=== PATIENT | female | born 1990 | race Caucasian/White ===

== ENCOUNTER 2020-01-06 11:28 | Observation (INO) | payer OTHER, SELFPAY ==
[2020-01-06 12:15] VITALS: BP 98/61; PULSE 97
[2020-01-06 12:30] VITALS: BP 109/65; PULSE 95
--- NOTE | 2020-01-06 12:50 | OBADM ---
This patient, Laxmi Draper, admitted to the OB room OB Post 112 for observation. Patient/family oriented to hospital policies and general routines including ID bracelet, bed and alarms, visiting hours, pain management, procedures, bathroom and other care routines, personal items, smoking policy, room service/diet, and visiting hours. Patient/Family are encouraged to report perceived risks to care and to ask questions if they do not understand what they are told or what they should do.
--- NOTE | 2020-01-06 12:54 | PC.NURSE ---
1128 -- Pt. presents to OB via sheelchair from the ED. Pt. reports lower back pain starting just above the R. buttock and radiates down the R. buttock and the back of the R. leg. Pt. states she has been having this pain for 3-4 days, but has increased last night and today. Pt. reports that it is very intense whenever she uses her leg muscles to move. Pt. denies any trauma or surgical history. FHR 150's, abdomen soft and non-tender, pt. denies ctxns and vaginal bleeding.
--- NOTE | 2020-01-06 12:58 | PC.NURSE ---
1218--Report to Dr. Concepcion re: pt's c/o, v.s., fhr and no ctxns noted. Orders to send pt. to ED for further evaluation.
--- NOTE | 2020-01-06 13:00 | PC.NURSE ---
1145--FHR 150s, unable to obtain continuous tracing r/t gestational age of 21.5 weeks.
--- NOTE | 2020-01-06 13:02 | PC.NURSE ---
1244--Pt. to ED for further evaluation via wheelchair.
--- NOTE | 2020-01-14 07:57 | PM.OBTRLD ---
OB - Triage/Final Diagnosis Final Diagnosis (1) Sciatic pain: Code(s): M54.30 - Sciatica, unspecified side Status: Acute
== END 2020-01-06 11:44 | disposition other institution (70) ==
PROVIDERS: Admitting Provider Obstetrics & Gynecology; PCP Family Medicine; Visit Provider Obstetrics & Gynecology
DX: O99.89 Other specified diseases and conditions complicating pregnancy, childbirth and the puerperium (principal); M54.30 Sciatica, unspecified side; Z3A.00 Weeks of gestation of pregnancy not specified
CPT/HCPCS: G0378; G0379

== ENCOUNTER 2020-01-06 12:48 | Emergency (ER) | payer OTHER, SELFPAY ==
[2020-01-06 13:00] VITALS: BP 108/64; PULSE 90; RESP 15; TEMP 36.5; O2SAT 100
[2020-01-06] MEDS: ACETAMINOPHEN 500 MG TABLET 1000 MG PO (14:09)
[2020-01-06] MEDS: CYCLOBENZAPRINE HCL 10 MG TABLET PO (14:10)
--- NOTE | 2020-01-06 14:10 | ED.BACK ---
HPI - Back Pain/Injury General Chief Complaint: Back Pain/Injury <HERMINIO Merritt Last Filed: 01/06/20 14:15> Stated Complaint: hip pain <HERMINIO Merritt Last Filed: 01/06/20 14:15> Time Seen by Provider: 01/06/20 13:22 <HERMINIO Merritt Last Filed: 01/06/20 14:15> Source: patient <HERMINIO Merritt Last Filed: 01/06/20 14:15> Mode of arrival: ambulatory <HERMINIO Merritt Last Filed: 01/06/20 14:15> Limitations: no limitations <HERMINIO Merritt Last Filed: 01/06/20 14:15> History of Present Illness HPI Narrative: Patient is a 29-year-old female who presents to emergency department for evaluation of low back pain that is been present for several days noting pain to the right lower back at the SI region that radiates into the buttock patient denies injury or trauma is currently over 20 weeks followed by OB was initially sent to [facility] [place] had the evaluated and was sent back after being cleared patient on arrival to emergency department notes that the pain is worse with weightbearing and activity patient notes she has had issues with her back in the past patient is G1, P0. Patient denies abdominal pain pelvic pain cramping or bleeding or other complaints and is otherwise resting comfortably in the room upon arrival <HERMINIO Merritt Last Filed: 01/06/20 14:15> Related Data Home Medications: Home Medications Medication Instructions Recorded Confirmed bupropion HCl [Wellbutrin XL] 300 mg PO DAILY 05/10/19 05/10/19 PNV cmb#95-ferrous fumarate-FA 1 tablet PO DAILY 01/06/20 01/06/20 [] calcium carb,glucon-vitamin D2 01/06/20 ondansetron HCl [Zofran] 4 mg PO Q6H PRN 01/06/20 01/06/20 <HERMINIO Merritt Last Filed: 01/06/20 14:15> Allergies/Adverse Reactions: Allergies Allergy/AdvReac Type Severity Reaction Status Date / Time venlafaxine [From Effexor] Allergy Rash Verified 01/06/20 13:08 medical tape AdvReac Unknown Unknown Uncoded 01/06/20 13:08 <Jose Franks PA-C - Last Filed: 01/06/20 14:15> Review of Systems Review of Systems: All systems reviewed & are unremarkable except as noted in HPI and below <Jose Franks PA-C - Last Filed: 01/06/20 14:15> PMFSH Family History Family History: Family History (Updated 03/03/14 @ 07:13 by DOCTOR UNKNOWN) Father Family history of cardiac disorder Grandparent Family history of lung cancer Sibling Family history of type 2 diabetes mellitus <Jose Franks PA-C - Last Filed: 01/06/20 14:15> Social History Social History: Social History Smoking status: Heavy tobacco smoker Second hand tobacco smoke exposure: No Alcohol intake: current Gender identity (if verbalized by the patient): Female <Jose Franks PA-C - Last Filed: 01/06/20 14:15> Exam Narrative: Exam Narrative: GENERAL: Well-appearing, well-nourished, and in no acute distress. HEAD: Normocephalic, atraumatic. EYES: PERRLA and EOMI. ENT: Nares clear, no rhinorrhea or epistaxis. Mucous membranes moist. CHEST: Clear to auscultation. No respiratory distress. No wheezes rales or rhonchi HEART: Regular rate and rhythm. No murmur heard. EXTREMITIES: Normal range of motion. No edema. Tenderness over the right SI joint. No midline tenderness SKIN: Warm, dry, no rash. NEURO: No focal deficits. Alert and oriented x3. Cranial nerves II through XII grossly intact. Motor and speech symmetrical in extremities PSYCH: Normal mood and affect. 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 <Jose Michelle
== END 2020-01-06 14:38 | disposition home or self-care (01) ==
PROVIDERS: Emergency Provider General Practice; PCP Family Medicine
DX: M54.16 Radiculopathy, lumbar region (principal); F17.210 Nicotine dependence, cigarettes, uncomplicated
CPT/HCPCS: 99283; A9270

== ENCOUNTER 2020-01-06 20:05 | Observation (INO) | payer OTHER, SELFPAY ==
[2020-01-06 20:22] VITALS: BP 117/65; PULSE 89
[2020-01-06 20:30] VITALS: BP 117/69; PULSE 90
[2020-01-06 20:43] LABS: Add Urine Microscopic? YES; Appearance Urine Cloudy (Clear); Bacteria Urine Trace /hpf; Bilirubin Urine Negative (Negative); Blood Urine Negative (Negative); Color Urine Straw (Yellow); Glucose Urine UA Negative (Negative); Ketones Urine Negative (Negative); Leukocyte Esterase Ur Trace LEU/UL (Negative); Nitrate Urine Negative (Negative); Protein Urine Negative (Negative); RBC Urine 0-2 /hpf (0-2); Squamous Epithelial Cell Urine Many /hpf (Few); Urobilinogen Urine Negative mg/dL (<2.0)
[2020-01-06 20:45] VITALS: BP 111/66; PULSE 89
[2020-01-06 20:47] LABS: Specific Grav Ur 1.003 (1.001-1.035)
[2020-01-06 21:00] VITALS: BP 107/61; PULSE 89
[2020-01-06 21:15] VITALS: BP 109/67; PULSE 91
[2020-01-06 21:28] VITALS: BMI 27.2
--- NOTE | 2020-01-06 21:29 | LDADM ---
This patient, Laxmi Draper, was admitted to OB Post 116 on 01/06/20 at 20:05. Plans for labor, pain management and were discussed with patient. Patient/family oriented to hospital policies and general routines including ID bracelet, bed and alarms, visiting hours, pain management, procedures, bathroom and other care routines, personal items, smoking policy, room service/diet and guest tray routines, security routines, and visiting hours. Patient/Family are encouraged to report perceived risks to care and to ask questions if they do not understand what they are told or what they should do. See OBIX for further documentation.
--- NOTE | 2020-01-06 21:59 | PC.NURSE ---
2004- pt came in c/o lower abd pain and lower back pain. stated that she just finished macrobid on Friday for a UTI. 2111- called Dr. Concepcion. informed of pt admission. UA results reviewed. sxs reviewed. order for Keflex 500mg QID x7 days received. pelvic rest ordered. pt has appt 01-11-2020 with Laurie NOVAK. keep appt. pt to f/u in office or return to L&D if further concerns.
--- NOTE | 2020-01-14 07:55 | PM.OBTRLD ---
OB - Triage/Final Diagnosis Evaluation Laboratory results: Laboratory Tests 01/06/20 20:30 Urine Color Straw Urine Appearance Cloudy H Urine pH 7.0 Ur Specific [place] 1.003 Urine Protein Negative Urine Glucose (UA) Negative Urine Ketones Negative Ur Blood (Man) Negative Urine Nitrate Negative Urine Bilirubin Negative Urine Urobilinogen Negative Leukocyte Esterase Rfl Trace H Urine RBC 0-2 Urine WBC 4-6 H Ur Squamous Epith Cells Many H Urine Bacteria Trace Hyaline Casts 1-2 Final Diagnosis (1) Spotting affecting in second trimester: Code(s): O26.852 - Spotting complicating , second trimester Status: Acute
== END 2020-01-06 21:55 | disposition home or self-care (01) ==
PROVIDERS: Admitting Provider Obstetrics & Gynecology; PCP Family Medicine; Visit Provider Obstetrics & Gynecology
DX: O26.852 Spotting complicating pregnancy, second trimester (principal); Z3A.00 Weeks of gestation of pregnancy not specified
CPT/HCPCS: 81001; 99283; A9270; G0378; G0379

== ENCOUNTER 2020-05-04 16:49 | Observation (INO) | payer OTHER, SELFPAY ==
[2020-05-04 17:00] VITALS: TEMP 36.6; BMI 32.0
[2020-05-04 17:02] VITALS: BP 130/80; PULSE 104
[2020-05-04 17:31] VITALS: BP 113/82; PULSE 95
--- NOTE | 2020-05-04 17:31 | OBADM ---
This patient, Laxmi Draper, admitted to the OB room 103 for observation for rectal pressure. Patient/family oriented to hospital policies and general routines including ID bracelet, bed and alarms, visiting hours, pain management, procedures, bathroom and other care routines, personal items, smoking policy, room service/diet, and visiting hours. Patient/Family are encouraged to report perceived risks to care and to ask questions if they do not understand what they are told or what they should do.
--- NOTE | 2020-05-15 20:55 | PM.OBTRLD ---
OB - Triage/Final Diagnosis Final Diagnosis (1) Constipation: Code(s): K59.00 - Constipation, unspecified Status: Acute
== END 2020-05-04 18:30 | disposition home or self-care (01) ==
PROVIDERS: Admitting Provider Obstetrics & Gynecology; PCP Family Medicine; Visit Provider Obstetrics & Gynecology
DX: O26.899 Other specified pregnancy related conditions, unspecified trimester (principal); K59.00 Constipation, unspecified; Z3A.00 Weeks of gestation of pregnancy not specified
CPT/HCPCS: G0378; G0379

== ENCOUNTER 2020-05-09 12:59 | Outpatient (CLI) | payer OTHER, SELFPAY ==
[2020-05-09] VITALS (9 sets, daily range): BP systolic 119–126; BP diastolic 79–89; PULSE 93–107; RESP 18; TEMP 36.6
[2020-05-09 13:50] LABS: Basophils Percent Auto 0.2 % (0.2-1.2); Eosinophils Absolute Auto 0.1 K/mm3 (0-0.3); Eosinophils Percent Auto 0.9 % (0-4.4); Hematocrit 33.5 % (37.0-47.0); Hemoglobin 11.5 g/dL (12.0-15.0); Immature Granulocyte Absolute 0.07 K/mm3 (0.00-0.031); Immature Granulocyte Percent A 0.5 % (0-0.5); Lymphocytes Absolute Auto 2.21 K/mm3 (0.9-3.2); Mean Corpuscular HGB Conc 34.3 g/dl (32-36); Mean Corpuscular Hemoglobin 29.3 pg (26-34); Mean Corpuscular Volume 85.5 fl (80-100); Mean Platelet Volume 10.7 fl (7.4-10.4); Monocytes Absolute Auto 0.5 K/mm3 (0.1-0.6); Monocytes Percent Auto 3.7 % (2.6-8.5); Neutrophils Absolute Auto 10.1 K/mm3 (1.3-6.7); Neutrophils Percent Auto 77.7 % (45.5-73.1); Platelet Count Result 290 k/mm3 (150-375); Red Blood Count 3.92 M/mm3 (4.2-5.4); Red Cell Distribution Width 14.4 % (11.5-14.5)
[2020-05-09 14:00] LABS: Alanine Aminotransferase 14 U/L (4-35); Albumin Level 3.3 g/dL (3.5-5.1); Alkaline Phosphatase 200 U/L (38-126); Anion Gap 6 mmol/L (8-16); Aspartate Amino Transferase 20 U/L (14-36); Bilirubin,Total 0.3 mg/dL (0.2-1.3); Blood Urea Nitrogen 7 mg/dL (7-17); Calcium 8.9 mg/dL (8.4-10.2); Carbon Dioxide 24 mmol/L (22-30); Chloride 106 mmol/L (98-107); Estimated Glomerular Filt Rate > 60; Glucose 146 mg/dL (65-105); Potassium 3.9 mmol/L (3.4-5.0); Sodium 136 mmol/L (137-145); Uric Acid 5.3 mg/dL (2.5-7.5)
[2020-05-09 14:16] LABS: Add Urine Microscopic? YES; Amorphous Sediment Urine Few; Appearance Urine Cloudy (Clear); Bacteria Urine 2+ /hpf; Bilirubin Urine Negative (Negative); Blood Urine Negative (Negative); Color Urine Yellow (Yellow); Glucose Urine UA Negative (Negative); Ketones Urine Negative (Negative); Leukocyte Esterase Ur 3+ LEU/UL (NEGATIVE); Mucus Urine Rare /lpf; Nitrate Urine Negative (Negative); Protein Urine Negative (Negative); Specific Grav Ur 1.011 (1.001-1.035); Squamous Epithelial Cell Urine Many /hpf (Few); Urobilinogen Urine Negative mg/dL (<2.0)
[2020-05-09 15:08] LABS: Creatinine Urine 63.2 mg/dL; Total Protein Urine Random 10 mg/dL
--- NOTE | 2020-05-09 15:12 | PC.NURSE ---
Laurie Gonzalez CNM updated regarding serial blood pressures, reactive NST, and lab results. Received orders to discharge patient to home and to have patient keep her induction of labor appointment for .
== END 2020-05-09 15:17 | disposition home or self-care (01) ==
LOC: ANHOBOP 13:22 → ANHOBPP 13:23
PROVIDERS: Advanced Practice Midwife; PCP Family Medicine; Visit Provider Obstetrics & Gynecology
DX: O13.3 Gestational [pregnancy-induced] hypertension without significant proteinuria, third trimester (principal); Z3A.39 39 weeks gestation of pregnancy
CPT/HCPCS: 36415; 59025; 80053; 81001; 82570; 84156; 84550; 85025; 87086; 87088; 99199

== ENCOUNTER 2020-05-11 16:48 | Inpatient (IN) | payer OTHER, SELFPAY ==
[2020-05-11] VITALS (11 sets, daily range): BP systolic 113–134; BP diastolic 73–96; PULSE 84–108; TEMP 36.4–36.7; BMI 31.7
[2020-05-11] MEDS: DINOPROSTONE 10 MG VAG INSERT VAGINAL (17:21)
[2020-05-11 17:26] LABS: Basophils Percent Auto 0.3 % (0.2-1.2); Eosinophils Absolute Auto 0.1 K/mm3 (0-0.3); Eosinophils Percent Auto 0.6 % (0-4.4); Hematocrit 38.8 % (37.0-47.0); Hemoglobin 13.3 g/dL (12.0-15.0); Immature Granulocyte Absolute 0.07 K/mm3 (0.00-0.031); Immature Granulocyte Percent A 0.6 % (0-0.5); Lymphocytes Absolute Auto 2.35 K/mm3 (0.9-3.2); Lymphocytes Percent Auto 20.1 % (18.3-44.2); Mean Corpuscular HGB Conc 34.3 g/dl (32-36); Mean Corpuscular Hemoglobin 28.9 pg (26-34); Mean Corpuscular Volume 84.3 fl (80-100); Mean Platelet Volume 10.4 fl (7.4-10.4); Monocytes Absolute Auto 0.5 K/mm3 (0.1-0.6); Neutrophils Absolute Auto 8.7 K/mm3 (1.3-6.7); Neutrophils Percent Auto 74.4 % (45.5-73.1); Platelet Count Result 305 k/mm3 (150-375); Red Cell Distribution Width 14.2 % (11.5-14.5); White Blood Count 11.7 K/mm3 (4.5-10.0)
--- NOTE | 2020-05-11 17:54 | LDADM ---
This patient, Laxmi Draper, was admitted to Labor/Delivery/Recovery 102 on 05/11/20 at 16:48. Plans for labor, pain management and were discussed with patient. Patient/family oriented to hospital policies and general routines including ID bracelet, bed and alarms, visiting hours, pain management, procedures, bathroom and other care routines, personal items, smoking policy, room service/diet and guest tray routines, infant security routines, and visiting hours. Patient/Family are encouraged to report perceived risks to care and to ask questions if they do not understand what they are told or what they should do. See OBIX for further documentation.
[2020-05-12] VITALS (220 sets, daily range): BP systolic 93–134; BP diastolic 52–93; PULSE 67–114; RESP 15–16; TEMP 36.1–37.4; O2SAT 93–100
[2020-05-12] MEDS: LACTATED RINGERS 1,000 ML 125 ML IV CONT ×4 (05:52→19:16)
[2020-05-12] MEDS: OXYTOCIN 30 UNITS/NS 500 ML 30 UNITS/500 ML BAG IV CONT (05:53)
--- NOTE | 2020-05-12 07:35 | WPDOBADMIT ---
Obstetrics - Admit Note Admission Note: record reviewed. No pertinent additions to the history and/or any subsequent changes in the physical findings that are not consistent with the expected course of the were found. EIL at term, SVE /-2 AROM large amount of clear odorless fluid Additions to the history and/or subsequent changes in the physical findings follow. None.
[2020-05-12 11:09] LABS: Rapid Plasma Reagin Non-Reactive (NonReactive)
[2020-05-12] MEDS: ONDANSETRON INJ 4 MG/2 ML VIAL IV PUSH (17:09)
[2020-05-12] MEDS: FAMOTIDINE 20 MG/2 ML VIAL IV PUSH (17:09)
[2020-05-13] VITALS (122 sets, daily range): BP systolic 98–139; BP diastolic 42–98; PULSE 52–143; RESP 16–20; TEMP 36.6–37.4; O2SAT 75–100
[2020-05-13] MEDS: AMPICILLIN 2 GM/NS 100 ML 2 GM/100 ML BAG IVPB (01:29)
[2020-05-13] MEDS: AMPICILLIN 1 GM/NS 50 ML 1 GM/50 ML BAG IVPB (05:08)
[2020-05-13] MEDS: ONDANSETRON INJ 4 MG/2 ML VIAL IV PUSH (05:08)
[2020-05-13] MEDS: LACTATED RINGERS 1,000 ML 125 ML IV CONT (05:26)
--- NOTE | 2020-05-13 08:39 | PM.OBPRVD ---
OB - Delivery Note Procedure Delivery date: 05/13/20 Intrapartal events: None Induction method: per pitocin protocol Delivery monitor: external FHT, external uterine and internal uterine Route of delivery: Episiotomy description: None Laceration Description: Vaginal - 1st Degree Delivery repair: vicryl Estimated blood loss (mL): 200 Narrative: Delivery per Monica OCONNOR. Cord gasses collected and handed off to staff. [place] Baby Date of : 05/13/20 Time of : 08:18 Weeks of gestation at delivery: 40 gender: Male Weight (pounds): 7 Weight (ounces): 10 presentation: vertex position: Left Occiput Anterior Placenta delivery description: Spontaneous cord vessel description: 3 Vessels
[2020-05-13] MEDS: OXYTOCIN 30 UNITS/NS 500 ML 30 UNITS/500 ML BAG 125 UNITS IV CONT (08:43)
[2020-05-13] MEDS: WITCH HAZEL 40 PADS 1 PAD TOPICAL (10:29)
[2020-05-13] MEDS: BENZOCAINE 20% AER SPR (*SP) 56 GM CAN 1 SPRAY TOPICAL (10:29)
--- NOTE | 2020-05-13 11:28 | OBPPTRN ---
Patient transferred to post room # 292 via wheelchair. Support person present. Oriented to unit, room, information board, rooming in, admission packet and security measures. Patient verbalizes understanding.
[2020-05-13] MEDS: DIBUCAINE 1% OINTMENT 30 GM TUBE 1 APPLIC TOPICAL (13:40)
[2020-05-13] MEDS: buPROPion HCL XL (24 HR) 150 MG TABCR 300 MG PO (14:52)
[2020-05-13] MEDS: IBUPROFEN 600 MG TABLET PO ×2 (14:53→19:50)
[2020-05-14] MEDS: IBUPROFEN 600 MG TABLET PO ×2 (02:36→09:12)
[2020-05-14 04:18] LABS: Hematocrit 30.6 % (37.0-47.0); Hemoglobin 10.5 g/dL (12.0-15.0)
[2020-05-14 06:45] VITALS: BP 110/69; PULSE 91; RESP 20; TEMP 36.5
[2020-05-14] MEDS: MULTIVIT/MIN/PREN/FOL AC/IRON TABLET 1 TAB PO (09:12)
[2020-05-14] MEDS: DOCUSATE SODIUM 100 MG CAPSULE PO (09:12)
--- NOTE | 2020-05-14 09:52 | WPDANLDPN2 ---
Anes-Prog Note L&D Date/Time: 05/14/20 09:52 Comfortable throughout: labor and delivery Neuraxial method: epidural Neuro status: Neuro function grossly intact. Cardiovascular status: normal Respiratory status: normal Airway patency: baseline Mental status: baseline Post-Op hydration status: normal Vital Signs: Last Vital Signs Temp 36.5 C 05/14/20 06:45 Pulse 91 05/14/20 06:45 Resp 20 05/14/20 06:45 BP 110/69 05/14/20 06:45 Pulse Ox 99 05/13/20 19:20 Pain score (VAS): 07/16 Post-procedural complaints: none Patient feedback: Patient satisfied with anesthetic care.
--- NOTE | 2020-05-14 10:32 | P.DS_ITS ---
DS: Admitting Diagnosis Admitting Diagnosis Admitting Diagnosis: induction of labor DS: Discharge Diagnosis Discharge Diagnosis (1) Vaginal delivery: Code(s): O80 - Encounter for full-term uncomplicated delivery Status: Acute OB - DS: Summary OB Procedures : None OB Procedures Intrapartum: Spontaneous Vag Delivery OB Procedures: : None Time Spent with Patient Time attestation: Total time spent providing and/or coordinating discharge services: DS: Data Data Completed and Pending Pending studies at discharge: Pending at discharge 05/13/20 09:34 Surgical [PTH] Routine Labs on day of discharge: Labs from last 24 hours 05/14/20 03:35 Hgb 10.5 L Hct 30.6 L Discharge Plan Discharge Attending physician on discharge: Rosa Dee Discharging Clinician: Rosa Dee Patient Disposition: Home, Self-Care Activity: pelvic rest Diet: as tolerated Patient Instructions: Antibiotic Form Stand Alone Forms: General Discharge Information Follow-up/Referrals: Rosa Dee, CNM [Certified Nurse Instructor Physical Education] - Discharge Medications: Continued bupropion HCl [Wellbutrin XL] 150 mg Tablet Extended Release 24 Hr 300 mg PO DAILY RF: 0 PNV cmb#95-ferrous fumarate-FA [] 28 mg iron- 800 mcg Tablet 1 tablet PO DAILY RF: 0 cholecalciferol (vitamin D3) [Vitamin D3] 50 mcg (2,000 unit) Tablet 75 mcg PO DAILY RF: 0 Discontinued ondansetron HCl [Zofran] 4 mg Tablet 8 mg PO DAILY PRN (Reason: Nausea) RF: 0 Date of admission: 05/11/20 16:48 Primary Care Provider: Kristen,Ksenia Nayak Admitting Provider: David Guevara Attending physician on admission: David Guevara Condition: Stable
--- NOTE | 2020-05-14 10:32 | PM.OBPNVD ---
OB - PN: Subj Subjective Date/time seen: 05/14/20 10:32 Patient comments: no complaints baby status: doing well OB - PN: Obj Data Labs CBC & Chem 7: 05/14/20 03:35 Labs: Laboratory Results - last 24 hr 05/14/20 03:35 Hgb 10.5 L Hct 30.6 L OB - PN A/P Plan day: 1 Plan: routine care and discharge home (F/U in 4 weeks) Time Spent With Patient Time: Total time spent is greater than 50% in coordination of care (as documented) at patient's floor/unit and/or counseling patient: Time with patient: less than 15 minutes Review of Systems Review of Systems: All systems reviewed & are unremarkable except as noted in HPI and below Exam Narrative: Exam Narrative: Fundus firm and vaginal flow controlled. No lower ext redness, warmth, or edema. Negative homans. Const: General: comfortable Chest: Breast/axilla inspection: normal inspection of the breasts Resp: Effort & Inspection: normal respiratory effort Cardio: Rate: regular rate GI: GI Palp: Yes Soft to palpation Psych: Appearance: grossly normal Affect: normal affect Attitude: cooperative Thought content: Yes Normal thought content present Judgement: Good judgement present (Psych)
[2020-05-15 08:45] VITALS: BP 127/83; PULSE 98; RESP 20; TEMP 36.7; O2SAT 99
== END 2020-05-14 13:02 | disposition home or self-care (01) | DRG 560 ==
LOC: ANHLDR 16:53 → ANHOB2 05-13 11:34
PROVIDERS: Advanced Practice Midwife; Admitting Provider Obstetrics & Gynecology; PCP Family Medicine; Visit Provider Obstetrics & Gynecology
DX: O70.0 First degree perineal laceration during delivery (principal); Z37.0 Single live birth; Z3A.40 40 weeks gestation of pregnancy; O36.8330 Maternal care for abnormalities of the fetal heart rate or rhythm, third trimester, not applicable or unspecified
CPT/HCPCS: 36415; 85014; 85018; 85025; 86592; 86850; 86900; 86901; 88307; A9270; J0290; J2405; J2590; J2795; J7120

== ENCOUNTER 2020-05-15 03:46 | Outpatient (CLI) | payer OTHER, SELFPAY ==
[2020-05-15 05:00] LABS: Basophils Absolute Auto 0.1 K/mm3 (0.0-0.1); Basophils Percent Auto 0.4 % (0.2-1.2); Eosinophils Absolute Auto 0.2 K/mm3 (0-0.3); Eosinophils Percent Auto 1.9 % (0-4.4); Hematocrit 30.4 % (37.0-47.0); Hemoglobin 10.3 g/dL (12.0-15.0); Immature Granulocyte Percent A 0.9 % (0-0.5); Lymphocytes Absolute Auto 2.43 K/mm3 (0.9-3.2); Lymphocytes Percent Auto 21.8 % (18.3-44.2); Mean Corpuscular HGB Conc 33.9 g/dl (32-36); Mean Corpuscular Hemoglobin 29.1 pg (26-34); Mean Corpuscular Volume 85.9 fl (80-100); Mean Platelet Volume 9.8 fl (7.4-10.4); Monocytes Absolute Auto 0.6 K/mm3 (0.1-0.6); Monocytes Percent Auto 5.5 % (2.6-8.5); Neutrophils Absolute Auto 7.8 K/mm3 (1.3-6.7); Neutrophils Percent Auto 69.5 % (45.5-73.1); Platelet Count Result 297 k/mm3 (150-375); Red Blood Count 3.54 M/mm3 (4.2-5.4); Red Cell Distribution Width 14.2 % (11.5-14.5); White Blood Count 11.2 K/mm3 (4.5-10.0)
[2020-05-15 05:10] LABS: Alanine Aminotransferase 17 U/L (4-35); Alkaline Phosphatase 148 U/L (38-126); Anion Gap 6 mmol/L (8-16); Aspartate Amino Transferase 28 U/L (14-36); Bilirubin,Total 0.2 mg/dL (0.2-1.3); Blood Urea Nitrogen 7 mg/dL (7-17); Calcium 8.6 mg/dL (8.4-10.2); Carbon Dioxide 25 mmol/L (22-30); Chloride 107 mmol/L (98-107); Estimated Glomerular Filt Rate > 60; Glucose 89 mg/dL (65-105); Potassium 3.5 mmol/L (3.4-5.0); Sodium 138 mmol/L (137-145)
--- NOTE | 2020-05-15 05:32 | PC.NURSE ---
see OBIX notes
== END 2020-05-15 05:44 | disposition home or self-care (01) ==
LOC: ANHOBOP 03:56
PROVIDERS: Advanced Practice Midwife; PCP Obstetrics & Gynecology; Visit Provider Obstetrics & Gynecology
DX: O13.9 Gestational [pregnancy-induced] hypertension without significant proteinuria, unspecified trimester (principal); Z3A.00 Weeks of gestation of pregnancy not specified
CPT/HCPCS: 36415; 80053; 84550; 85025

== ENCOUNTER 2020-12-26 12:37 | Emergency (ER) | payer OTHER, SELFPAY ==
[2020-12-26 12:45] VITALS: BP 122/80; PULSE 89; RESP 16; TEMP 36.3; O2SAT 100
--- NOTE | 2020-12-26 13:16 | ED.URI ---
HPI - URI/Sore Throat General Chief Complaint: Upper Respiratory Infection Stated Complaint: Congestion,Ear Pain Source: patient and RN notes reviewed Limitations: no limitations History of Present Illness HPI Narrative: The patient-who is a nondrinker/ smoker inc marijuana- presents with sinus discomfort. Patient states she is currently breast-feeding and has a 10-day history of nasal congestion, right ear fullness/bubbling, lightheadedness, right-sided tinnitus yesterday. No fever measured, sore throat, cough, tinnitus now. She has been Covid vaccinated [x2] : No loss of taste/smell, CP, vomiting/diarrhea, S OB. Symptoms are mild, unrelieved with antihistamines Related Data Home Medications Medication Instructions Recorded Confirmed bupropion HCl 300 mg PO DAILY 12/26/20 12/26/20 buspirone 10 mg PO BID 12/26/20 12/26/20 Allergies Allergy/AdvReac Type Severity Reaction Status Date / Time venlafaxine [From Effexor] Allergy Rash Verified 12/26/20 13:08 medical tape AdvReac Unknown Unknown Uncoded 12/26/20 13:08 Review of Systems Review of Systems: Narrative: General/Constitutional: No weight loss,fever Eyes: N0: Redness,discharge Ears/Nose/Throat: No: Epistaxis,ear discharge Respiratory: Denies: Hemoptysis Gastrointestinal: No Vomiting, Bleeding-rectal Skin: No Lumps, eruption Neurologic: No Focal Weakness,Sz Hematologic: Denies: Petechiae/Purpura Psychiatric: No: Suicida ideationl All Other Systems: Reviewed and Negative PMFSH Family History Family History (Updated 04/12/20 @ 14:33 by Samantha Kelsey RN) Father Family history of cardiac disorder SVT (supraventricular tachycardia) Grandparent Family history of lung cancer Sibling Family history of type 2 diabetes mellitus Mother Endometrial cancer Social History Social History Smoking status: Former smoker Second hand tobacco smoke exposure: No Alcohol intake: current Substance use: former Gender identity (if verbalized by the patient): Female Spiritual care concerns: No Comments At time of signature, agree with nursing past medical, surgical, social and family history. There is no relevant family history pertinent to the presenting complaint Exam Narrative: Exam Narrative: General Appearance: Well appearing, Well nourished EYE: PERRLA, Conjunctiva clear Ears: Auditory canal normal, TM normal Nose: Rhinorrhea, Mucousal erythema Mouth/Throat: MM moist, Uvula midline, Pharyngeal erythema Neck: Supple, No adenopathy Respiratory: No respiratory distress, Breath sounds equal, Clear to auscultation Cardiovascular: RRR, No JVD Musculoskeletal: Non tender, Normal strength Skin: Warm, Dry, multiple tattoos Neurological: A&O x3, CN II-XII intact Psychiatric: Normal mood, Normal affect Course Vital Signs Vital signs: Vital Signs Temperature 97.3 F L 12/26/20 12:45 Pulse Rate 89 12/26/20 12:45 Respiratory Rate 16 12/26/20 12:45 Blood Pressure 122/80 12/26/20 12:45 Pulse Oximetry 100 12/26/20 12:45 Temperature 97.3 F L 12/26/20 12:45 Pulse Rate 89 12/26/20 12:45 Respiratory Rate 16 12/26/20 12:45 Blood Pressure 122/80 12/26/20 12:45 Pulse Oximetry 100 12/26/20 12:45 Discharge Plan Discharge Clinical Impression: Sinusitis Patient Disposition: Home, Self-Care Condition: Stable Instructions: Sinusitis (ED) Additional Instructions: You may try OTC preparations like Mucinex, Flonase, Claritin or Codie, etc. Prescriptions: New azelastine 137 mcg (0.1 %) aerosol,spray 137 mcg NASAL Q12H Qty: 30 RF: 0 amoxicillin 875 mg tablet 875 mg PO Q12H Qty: 20 RF: 0 No Action buspirone 10 mg tablet 10 mg PO BID RF: 0 bupropion HCl 300 mg tablet extended release 24 hr 300 mg PO DAILY RF: 0 Follow-up/Referrals: Jovan,Ksenia Nayak MD [Primary Care Provider] -
== END 2020-12-26 13:35 | disposition home or self-care (01) ==
PROVIDERS: Emergency Provider Emergency Medicine; PCP Family Medicine
DX: J32.9 Chronic sinusitis, unspecified (principal); Z87.891 Personal history of nicotine dependence
CPT/HCPCS: 99213; G0463

== ENCOUNTER 2021-08-26 11:24 | Emergency (ER) | payer OTHER, SELFPAY ==
--- NOTE | 2021-08-26 11:28 | ED.URI ---
HPI - URI/Sore Throat General Chief Complaint: Upper Respiratory Infection Stated Complaint: Sinus Infection Time Seen by Provider: 08/26/21 11:40 Source: patient and RN notes reviewed History of Present Illness HPI Narrative: Patient is a 30-year-old female who presents the urgent care with complaints of sinus pressure, postnasal drainage and a left nasal sore. Patient states that it has been there for approximately 1-1/2 weeks. States that she is currently breast-feeding has not taken anything [id number] for her symptoms. Patient denies of any fevers, chills, nausea or vomiting. No other acute complaints. No acute distress noted. Patient read the plan of care. Some parts of this dictation were generated by voice recognition software and may contain typographical and/or grammatical inaccuracies. Related Data Home Medications Medication Instructions Recorded Confirmed bupropion HCl 300 mg PO DAILY 08/26/21 08/26/21 clindamycin phosphate 1 applic TOPICAL DAILY 08/26/21 08/26/21 norethindrone (contraceptive) 0.35 mg PO DAILY 08/26/21 08/26/21 [Incassia] Allergies Allergy/AdvReac Type Severity Reaction Status Date / Time venlafaxine [From Effexor] Allergy Rash Verified 08/26/21 11:34 medical tape AdvReac Unknown Unknown Uncoded 08/26/21 11:34 Review of Systems Review of Systems: CONSTITUTIONAL: Denies fever, chills, or sweats. EYES: Denies visual changes, redness, or discharge. ENT: Reports of a nasal sore, congestion, postnasal drainage and sinus pressure CARDIOVASCULAR: Denies chest pain, palpitations, or edema. RESPIRATORY: Denies cough or dyspnea. GASTROINTESTINAL: Denies abdominal pain, nausea, vomiting, or diarrhea. GENITOURINARY: Denies dysuria or hematuria. SKIN: Denies rash or itching. MUSCULOSKELETAL: Denies back pain, joint pain, or myalgia. NEUROLOGIC: Denies headache, numbness, or weakness. All other systems reviewed are negative, except as documented in HPI. [facility] Family History Family History (Updated 04/12/20 @ 14:33 by Samantha Kelsey RN) Father Family history of cardiac disorder SVT (supraventricular tachycardia) Grandparent Family history of lung cancer Sibling Family history of type 2 diabetes mellitus Mother Endometrial cancer Social History Social History Smoking status: Former smoker Second hand tobacco smoke exposure: No Alcohol intake: current Substance use: former Gender identity (if verbalized by the patient): Female Spiritual care concerns: No Comments At the time of my signature, I reviewed and agree with the nursing past medical, surgical, social, and family history. There is no relevant family history pertinent to the patient complaint. Exam Narrative: GENERAL: This is a well-nourished, well-developed patient, in no apparent distress. HEAD: normocephalic, atraumatic. Moderate frontal sinus pressure/tenderness EYES: PERRL. Sclera clear/white. Vision is grossly intact. EARS: External ears normal, auditory canals clear and without drainage, TMs normal without perforation. Hearing grossly intact. NOSE: External nose normal with no obvious nasal discharge. Bilateral erythemic nares with impetigo-like lesion to the left nare with clear to yellow rhinorrhea THROAT: Mucous membranes moist, posterior pharynx clear. Mild postnasal drainage NECK: Neck supple CARDIOVASCULAR: Regular rate and rhythm without murmurs, gallops, or rubs. RESPIRATORY: Clear to auscultation. Breath sounds equal bilaterally. No wheezes, rales, or rhonchi. SKIN: warm, intact with no suspicious lesions or rash, good texture and turgor. NEURO: awake, alert, and oriented to person, place and time. There were no obvious focal neurologic abnormalities. EXTREMITIES: No clubbing, cyanosis, or edema. Course Course Level of Care: Express Care Visit Vital Signs Vital signs: Vital Signs Temperature 97.8 F 08/26/21 11:32 P
[2021-08-26 11:32] VITALS: BP 123/74; PULSE 83; RESP 16; TEMP 36.6; O2SAT 100
== END 2021-08-26 11:53 | disposition home or self-care (01) ==
PROVIDERS: Emergency Provider Nurse Practitioner Family
DX: J32.9 Chronic sinusitis, unspecified (principal); Z87.891 Personal history of nicotine dependence; F32.A Depression, unspecified
CPT/HCPCS: 99213; G0463

== ENCOUNTER 2022-01-29 11:55 | Emergency (ER) | payer OTHER, SELFPAY ==
[2022-01-29 12:04] VITALS: BP 156/92; PULSE 98; RESP 16; TEMP 37.1; O2SAT 100
--- NOTE | 2022-01-29 12:18 | ED.URI ---
HPI - URI/Sore Throat General Chief Complaint: Upper Respiratory Infection Stated Complaint: uri Time Seen by Provider: 01/29/22 12:18 Source: patient and RN notes reviewed Mode of arrival: ambulatory Limitations: no limitations History of Present Illness HPI Narrative: 31 y/o female presented for c/o cough, sinus pressure and congestion for 2 weeks. She is currently and has avoided antihistamines. Denies sob, wheezing, n/v/d/f/c. MD elicited complaint: cough Related Data Home Medications Medication Instructions Recorded Confirmed bupropion HCl 300 mg 24 hr tablet, 300 mg PO DAILY 08/26/21 01/29/22 extended release norethindrone (contraceptive) 0.35 0.35 mg PO DAILY 08/26/21 01/29/22 mg tablet (Incassia) omeprazole 20 mg capsule,delayed 20 mg PO DAILY 01/29/22 01/29/22 release Allergies Allergy/AdvReac Type Severity Reaction Status Date / Time venlafaxine [From Effexor] Allergy Rash Verified 01/29/22 12:08 medical tape AdvReac Unknown Unknown Uncoded 01/29/22 12:08 Review of Systems Review of Systems: CONSTITUTIONAL: Denies malaise, chills, sweats, fever EYES: Denies visual changes, redness, or discharge ENT: Reports rhinorrhea, congestion, sinus pain denies otalgia, sore throat CARDIOVASCULAR: Denies chest pain, palpitations, edema RESPIRATORY: Reports cough, post nasal drainage. Denies dyspnea GASTROINTESTINAL: Denies abdominal pain, nausea, vomiting, diarrhea SKIN: Denies rash or itching MUSCULOSKELETAL: denies myalgia NEUROLOGIC: Denies headache [facility] Family History Family History Father Family history of cardiac disorder SVT (supraventricular tachycardia) Grandparent Family history of lung cancer Sibling Family history of type 2 diabetes mellitus Mother Endometrial cancer Social History Social History Smoking status: Former smoker Second hand tobacco smoke exposure: No Alcohol intake: current Substance use: former Gender identity (if verbalized by the patient): Female Spiritual care concerns: No Exam Narrative: GENERAL: well-appearing, nontoxic EYES: conjunctivae clear ENT: Mucous membranes moist. TM pearly tolliver with dull light reflex bilaterally; no tragal tenderness. Oropharynx erythematous without lesions or exudate, no drooling, no hoarseness, no trismus, uvula midline. NECK: Supple. No lymphadenopathy CHEST: Clear to auscultation, breath sounds equal. No wheezing, rhonchi, rales, or stridor. No respiratory distress, speaks in full sentences. HEART: Regular rate and rhythm. No murmur heard. SKIN: Warm, dry, no rash. NEURO: Alert and oriented x3. Course Course Emergency Course: Patient is aware of diagnosis, understands and agrees to treatment plan. Anticipatory guidance given. Patient agrees to follow-up as directed and is aware of reasons to seek care at the emergency department. Portions of this record may have been created with voice recognition software Level of Care: Express Care Visit Vital Signs Vital signs: Vital Signs Temperature 98.8 F 01/29/22 12:04 Pulse Rate 98 01/29/22 12:04 Respiratory Rate 16 01/29/22 12:04 Blood Pressure 156/92 H 01/29/22 12:04 Pulse Oximetry 100 01/29/22 12:04 Oxygen Delivery Room Air 01/29/22 12:04 Temperature 98.8 F 01/29/22 12:04 Pulse Rate 98 01/29/22 12:04 Respiratory Rate 16 01/29/22 12:04 Blood Pressure 156/92 H 01/29/22 12:04 Pulse Oximetry 100 01/29/22 12:04 Oxygen Delivery Room Air 01/29/22 12:04 reviewed MDM - URI/Sore Throat MDM Narrative Medical decision making narrative: Advised supportive measures for uri and signs/symptoms to go to the ER. Pt is appropriate for outpt treatment and f/u. Differential Diagnosis Differential diagnosis: Likely upper respiratory infection, sinusitis and viral infection Discharge Plan
== END 2022-01-29 12:48 | disposition home or self-care (01) ==
PROVIDERS: Emergency Provider Nurse Practitioner Family
DX: J06.9 Acute upper respiratory infection, unspecified (principal); Z87.891 Personal history of nicotine dependence
CPT/HCPCS: 99213; G0463

== ENCOUNTER 2022-05-12 08:57 | Emergency (ER) | payer OTHER, SELFPAY ==
[2022-05-12 09:09] VITALS: BP 119/85; PULSE 101; RESP 16; TEMP 36.7; O2SAT 99
--- NOTE | 2022-05-12 09:09 | ED.WOUNDLAC ---
HPI - Wound/Laceration General Stated Complaint: lacertion left 3rd finger injury Related Data Home Medications Medication Instructions Recorded Confirmed bupropion HCl 300 mg 24 hr tablet, 300 mg PO DAILY 08/26/21 01/29/22 extended release norethindrone (contraceptive) 0.35 0.35 mg PO DAILY 08/26/21 01/29/22 mg tablet (Incassia) omeprazole 20 mg capsule,delayed 20 mg PO DAILY 01/29/22 01/29/22 release Allergies Allergy/AdvReac Type Severity Reaction Status Date / Time venlafaxine [From Effexor] Allergy Rash Verified 01/29/22 12:08 medical tape AdvReac Unknown Unknown Uncoded 01/29/22 12:08 [facility] Family History Family History Father Family history of cardiac disorder SVT (supraventricular tachycardia) Grandparent Family history of lung cancer Sibling Family history of type 2 diabetes mellitus Mother Endometrial cancer Social History Social History Smoking status: Former smoker Second hand tobacco smoke exposure: No Alcohol intake: current Substance use: former Gender identity (if verbalized by the patient): Female Spiritual care concerns: No Discharge Plan Discharge Prescriptions: No Action norethindrone (contraceptive) [Incassia] 0.35 mg tablet 0.35 mg PO DAILY bupropion HCl 300 mg tablet extended release 24 hr 300 mg PO DAILY omeprazole 20 mg capsule,delayed release(DR/EC) 20 mg PO DAILY amoxicillin-pot clavulanate 875-125 mg tablet 1 tablet PO Q12H 7 Days Qty: 14 0RF Follow-up/Referrals: Dez,LISA Mondragon [Primary Care Provider] -
== END 2022-05-12 09:50 | disposition left against medical advice (07) ==
PROVIDERS: Emergency Provider Internal Medicine Hematology & Oncology; PCP Physician Assistant
DX: Z53.21 Procedure and treatment not carried out due to patient leaving prior to being seen by health care provider (principal)
CPT/HCPCS: 99199

== ENCOUNTER 2022-06-11 19:28 | Emergency (ER) | payer OTHER, SELFPAY ==
--- NOTE | ~2022-06-11 | CT_ITS ---
EXAMINATION: CT brain wo con DATE: 06/11/2022 22:20 INDICATION: hit head, nausea . TECHNIQUE: Computed tomography (CT) of the head was performed without intravenous contrast. The mA wa s adjusted according to patient size. Iterative reconstruction technique was employed. The dose-lengt h product was 605.33 mGy-cm. COMPARISON: None FINDINGS: No acute intracranial hemorrhage or extra-axial fluid collection. No hydrocephalus, mass, or herniation. No acute ischemic infarct. Unremarkable dural venous sinus attenuation. No acute osseous abnormality. Trace left mastoid fluid. Aerated secretions in the sphenoid sinuses. The remaining aerated spaces ar e clear. IMPRESSION: No acute intracranial process. Possible acute sphenoid sinusitis. Reviewed, dictated and finalized at location K. CIDE SQUAD CAPTAIN
[2022-06-11 19:31] VITALS: BP 122/88; PULSE 92; RESP 16; TEMP 36.4; O2SAT 100
[2022-06-11] MEDS: ONDANSETRON HCL ODT 4 MG TABLET PO (22:37)
[2022-06-11] MEDS: ACETAMINOPHEN 325 MG TABLET 650 MG PO (22:37)
--- NOTE | 2022-06-11 22:56 | ED.HEATRA ---
HPI - Head Injury General Chief complaint: Head Injury Stated complaint: head trauma Time Seen by Provider: 06/11/22 21:13 Source: patient Mode of arrival: ambulatory Limitations: no limitations History of Present Illness HPI Narrative: 31-year-old female presents today with complaints of pain to the left side of her head with nausea and dizziness. Patient states yesterday she was standing up when she hit her head on the corner of a shelf. States she was dizzy and saw stars . She sat down for about 15 minutes then felt back to normal. She started with some dizziness and nausea last night. Patient states she woke up this morning feeling better but as the day is continued she continued with nausea and intermittent dizziness with pain to the left side of the head. Patient denies taking any medications for pain. Patient denies vomiting. She has endorsed nausea but she does have nausea frequently prior to the incident. Patient denies chance of last menstrual period about 1 month ago when she has not been sexually active. She states that she thinks she is trying to start her menstrual cycle now. Related Data Home Medications Medication Instructions Recorded Confirmed bupropion HCl 300 mg 24 hr tablet, 300 mg PO DAILY 08/26/21 01/29/22 extended release norethindrone (contraceptive) 0.35 0.35 mg PO DAILY 08/26/21 01/29/22 mg tablet (Incassia) omeprazole 20 mg capsule,delayed 20 mg PO DAILY 01/29/22 01/29/22 release Allergies Allergy/AdvReac Type Severity Reaction Status Date / Time venlafaxine [From Effexor] Allergy Rash Verified 01/29/22 12:08 medical tape AdvReac Unknown Unknown Uncoded 01/29/22 12:08 Review of Systems Review of Systems: CONSTITUTIONAL: Denies fever, chills, or sweats. EYES: Denies visual changes, redness, or discharge. CARDIOVASCULAR: Denies chest pain, palpitations, or edema. RESPIRATORY: Denies cough or dyspnea. GASTROINTESTINAL: Nausea without vomiting. Denies abdominal pain or diarrhea. GENITOURINARY: Denies dysuria or hematuria. SKIN: Denies rash or itching. MUSCULOSKELETAL: Denies back pain, joint pain, or myalgia. NEUROLOGIC: Pain to left side of the head but denies headache. Denies numbness, dizziness, or weakness. PSYCHIATRIC: Denies anxiety or depression. [facility] Family History Family History Father Family history of cardiac disorder SVT (supraventricular tachycardia) Grandparent Family history of lung cancer Sibling Family history of type 2 diabetes mellitus Mother Endometrial cancer Social History Social History Smoking status: Former smoker Second hand tobacco smoke exposure: No Alcohol intake: current Substance use: former Gender identity (if verbalized by the patient): Female Spiritual care concerns: No Exam Narrative: GENERAL: Well-appearing, well-nourished, and in no acute distress. HEAD: Normocephalic, atraumatic. EYES: PERRLA and EOMI. ENT: Nares clear, no rhinorrhea or epistaxis. Mucous membranes moist. Oropharynx without tonsillar hypertrophy exudate or other lesions. Bilateral TMs pearly tolliver nonbulging NECK: Supple. No adenopathy or masses. No carotid bruits or JVD CHEST: Clear to auscultation. No respiratory distress. No wheezes rales or rhonchi HEART: Regular rate and rhythm. No murmur heard. Normal peripheral pulses. EXTREMITIES: Normal range of motion. No edema. NEURO: No focal deficits. Alert and oriented x3. Course Vital Signs Vital signs: Vital Signs Temperature 97.6 F 06/11/22 19:31 Pulse Rate 92 06/11/22 19:31 Respiratory Rate 16 06/11/22 19:31 Blood Pressure 122/88 06/11/22 19:31 Pulse Oximetry 100 06/11/22 19:31 Oxygen Delivery Room Air 06/11/22 19:31 Temperature 97.6 F 06/11/22 19:31 Pulse Rate 92 06/11/22 19:31 Respiratory Rate 16 06/11/22 19:31 Blood
== END 2022-06-11 23:33 | disposition home or self-care (01) ==
PROVIDERS: Emergency Provider Nurse Practitioner Family; PCP Physician Assistant
DX: S09.90XA Unspecified injury of head, initial encounter (principal); Z87.891 Personal history of nicotine dependence; W22.8XXA Striking against or struck by other objects, initial encounter
CPT/HCPCS: 70450; 99284; A9270

== ENCOUNTER 2023-07-25 17:23 | Emergency (ER) | payer OTHER, SELFPAY ==
--- NOTE | ~2023-07-25 | CT_ITS ---
EXAMINATION: CT abdomen pelvis w con INDICATION: Right upper quadrant pain and biliary colic TECHNIQUE: Computed tomographic images of the abdomen and pelvis were obtained after the administrati on of 100 cc of Omnipaque 350 intravenous contrast. The dose-length product (DLP) was 403.98 mGy-cm. Automated exposure control and iterative reconstruction technique were employed. COMPARISON: None available FINDINGS: Minimal dependent atelectasis is present in the lung bases. The heart size is normal. There is a 9 mm lesion of the right hepatic lobe with interrupted peripheral nodular enhancement, consiste nt with a hemangioma. The spleen, pancreas, and adrenal glands are normal. A stone is present in the nondistended gallbladder. There is a 5.5 cm cyst of the right kidney with thin internal septation. Th e left kidney is unremarkable. The appendix is normal. IMPRESSION: 1. Cholelithiasis without evidence of cholecystitis. Reviewed, dictated and finalized at location F. ET MAKER
--- NOTE | ~2023-07-25 | XR_ITS ---
EXAMINATION: XR chest 2V DATE: 07/25/2023 20:59 INDICATION: Right sided chest pain TECHNIQUE: PA and lateral views of the chest are obtained. COMPARISON: 05/29/2017 FINDINGS: The lungs are free of acute opacities. No pleural effusion or pneumothorax. The cardiomedia stinal silhouette is normal. The visualized bones and soft tissues are unremarkable. IMPRESSION: 1. No acute cardiopulmonary abnormality. Reviewed, dictated and finalized at location F. OSITION PLAYER
[2023-07-25 17:25] VITALS: BP 150/100; PULSE 92; RESP 18; TEMP 37.1; O2SAT 100
--- NOTE | 2023-07-25 20:49 | ED.ABDPAIN ---
HPI - Abdominal Pain General Chief Complaint: Abdominal Pain <Deisi Montelongo PA-C - Last Filed: 07/26/23 00:09> Stated Complaint: RUQ abd pain/chills <Deisi Montelongo PA-C - Last Filed: 07/26/23 00:09> Time Seen by Provider: 07/25/23 20:02 <Deisi Montelongo PA-C - Last Filed: 07/26/23 00:09> History of Present Illness HPI narrative: 32-year-old female reports for evaluation for intermittent right upper quadrant abdominal pain since April 2023. Patient states that being in her symptoms, she went to her PCP who referred her to GI. Patient is appointment in August for follow-up with GI, however report to the emergency department after pain is progressed. Patient states the pain normally occurs at night and is happened multiple times over the past few months. States it is sharp in her right upper quadrant it is associated with nausea. States yesterday her pain was really bad throughout the day and then subsided in the evening. She states today she was not having any pain in this area until she leaned her abdomen against the counter and developed pain in this area which prompted her to come to the ER. Patient states while she was in the waiting room, the pain became severe and radiated to her right shoulder but has since subsided again. She reports associated abdominal bloating and nausea. She also reports intermittent full body chills for the past few days. She also reports an associated decreased appetite. Patient states she noticed that her symptoms are worse after she eats high fatty foods like [id number]. She has not had any abdominal surgeries. Denies fever, dysuria or hematuria, vaginal discharge or concern for STDs, prior history of STDs. She reports intermittent pleuritic pain, otherwise denies chest pain or shortness of breath. Denies cough , lower extremity edema, prior history of VTE. She is on a progesterone only control (Slynd). <Deisi Montelongo PA-C - Last Filed: 07/26/23 00:09> Related Data Home Medications: Home Medications Medication Instructions Recorded Confirmed bupropion HCl 300 mg 24 hr tablet, 300 mg PO DAILY 08/26/21 01/29/22 extended release norethindrone (contraceptive) 0.35 0.35 mg PO DAILY 08/26/21 01/29/22 mg tablet (Incassia) omeprazole 20 mg capsule,delayed 20 mg PO DAILY 01/29/22 01/29/22 release <Deisi Montelongo PA-C - Last Filed: 07/26/23 00:09> Allergies/Adverse Reactions: Allergies Allergy/AdvReac Type Severity Reaction Status Date / Time venlafaxine [From Effexor] Allergy Rash Verified 07/25/23 20:08 medical tape AdvReac Unknown Unknown Uncoded 07/25/23 20:08 <Deisi Montelongo PA-C - Last Filed: 07/26/23 00:09> Review of Systems Review of Systems: CONSTITUTIONAL: Denies fever, chills, or sweats. EYES: Denies visual changes, redness, or discharge. ENT: Denies rhinorrhea, congestion, sore throat, or otalgia. CARDIOVASCULAR: See HPI RESPIRATORY: see HPI GASTROINTESTINAL: Denies abdominal pain, nausea, vomiting, or diarrhea. GENITOURINARY: Denies dysuria or hematuria. SKIN: Denies rash or itching. MUSCULOSKELETAL: Denies back pain, joint pain, or myalgia. NEUROLOGIC: Denies headache, numbness, or weakness. PSYCHIATRIC: Denies anxiety or depression. <Deisi Montelongo PA-C - Last Filed: 07/26/23 00:09> [facility] Family History Family History: Family History Father Family history of cardiac disorder SVT (supraventricular tachycardia) Grandparent Family history of lung cancer Sibling Family history of type 2 diabetes mellitus Mother Endometrial cancer <Deisi Montelongo PA-C - Last Filed: 07/26/23 00:09> Social History Social History: Social History Smoking status: Former smoker Second hand tobacco smoke exposure: No Alcohol intake: current Substa
[2023-07-25] MEDS: SODIUM CHLORIDE 0.9% IV 1,000 ML 999 ML IV CONT (22:20)
[2023-07-25] MEDS: ACETAMINOPHEN 500 MG TABLET 1000 MG PO (22:21)
[2023-07-25 22:33] LABS: Appearance Urine Clear (Clear); Basophils Percent Auto 0.4 % (0.2-1.2); Bilirubin Urine Negative (Negative); Blood Urine Negative (Negative); Color Urine Yellow (Yellow); Eosinophils Absolute Auto 0.3 K/mm3 (0-0.3); Eosinophils Percent Auto 3.4 % (0-4.4); Glucose Urine UA Negative (Negative); Hematocrit 38.3 % (37.0-47.0); Hemoglobin 12.9 g/dL (12.0-15.0); Immature Granulocyte Absolute 0.01 K/mm3 (0.00-0.031); Immature Granulocyte Percent A 0.1 % (0-0.5); Ketones Urine Negative (Negative); Leukocyte Esterase Ur Negative LEU/UL (Negative); Lymphocytes Absolute Auto 3.44 K/mm3 (0.9-3.2); Lymphocytes Percent Auto 38.1 % (18.3-44.2); Mean Corpuscular HGB Conc 33.7 g/dl (32-36); Mean Corpuscular Hemoglobin 28.4 pg (26-34); Mean Corpuscular Volume 84.4 fl (80-100); Mean Platelet Volume 9.6 fl (7.4-10.4); Monocytes Absolute Auto 0.5 K/mm3 (0.1-0.6); Monocytes Percent Auto 5.8 % (2.6-8.5); Neutrophils Absolute Auto 4.7 K/mm3 (1.3-6.7); Neutrophils Percent Auto 52.2 % (45.5-73.1); Nitrate Urine Negative (Negative); Platelet Count Result 342 k/mm3 (150-375); Protein Urine Negative (Negative); Red Blood Count 4.54 M/mm3 (4.2-5.4); Red Cell Distribution Width 13.2 % (11.5-14.5); Specific Grav Ur 1.006 (1.001-1.035); Urobilinogen Urine 0.2 mg/dL (<2.0)
[2023-07-25 22:42] LABS: Alanine Aminotransferase 50 U/L (6-35); Albumin Level 4.1 g/dL (3.5-5.1); Alkaline Phosphatase 97 U/L (38-126); Anion Gap 8 mmol/L (8-16); Aspartate Amino Transferase 28 U/L (14-36); Bilirubin,Total 0.6 mg/dL (0.2-1.3); Blood Urea Nitrogen 5 mg/dL (7-17); Calcium 8.9 mg/dL (8.4-10.2); Carbon Dioxide 26 mmol/L (22-30); Chloride 106 mmol/L (98-107); Estimated CRCL calculation 92 ml/min; Estimated Glomerular Filt Rate > 60; Glucose 90 mg/dL (65-110); Lipase 58 U/L (23-300); Potassium 3.6 mmol/L (3.4-5.0); Sodium 140 mmol/L (137-145)
[2023-07-25 22:43] LABS: Add Urine Microscopic? NO
[2023-07-26 00:19] VITALS: BP 142/90; PULSE 86; RESP 15; O2SAT 98
== END 2023-07-26 00:20 | disposition home or self-care (01) ==
PROVIDERS: Emergency Provider Physician Assistant; PCP Physician Assistant
DX: K80.70 Calculus of gallbladder and bile duct without cholecystitis without obstruction (principal); Z87.891 Personal history of nicotine dependence
CPT/HCPCS: 36415; 71046; 74177; 80053; 81003; 81025; 83690; 85025; 96360; 99284; A9270; J7030; Q9967

== ENCOUNTER 2023-07-26 14:46 | Emergency (ER) | payer OTHER, SELFPAY ==
[2023-07-26 14:47] VITALS: BP 132/96; PULSE 116; RESP 18; TEMP 36.6; O2SAT 100
[2023-07-26 15:10] LABS: Basophils Absolute Auto 0.1 K/mm3 (0.0-0.1); Basophils Percent Auto 0.5 % (0.2-1.2); Eosinophils Absolute Auto 0.2 K/mm3 (0-0.3); Eosinophils Percent Auto 2.1 % (0-4.4); Hematocrit 40.1 % (37.0-47.0); Hemoglobin 13.1 g/dL (12.0-15.0); Immature Granulocyte Absolute 0.04 K/mm3 (0.00-0.031); Immature Granulocyte Percent A 0.4 % (0-0.5); Lymphocytes Absolute Auto 2.72 K/mm3 (0.9-3.2); Lymphocytes Percent Auto 25.4 % (18.3-44.2); Mean Corpuscular HGB Conc 32.7 g/dl (32-36); Mean Corpuscular Hemoglobin 28.1 pg (26-34); Mean Corpuscular Volume 86.1 fl (80-100); Mean Platelet Volume 9.6 fl (7.4-10.4); Monocytes Absolute Auto 0.6 K/mm3 (0.1-0.6); Monocytes Percent Auto 5.2 % (2.6-8.5); Neutrophils Absolute Auto 7.1 K/mm3 (1.3-6.7); Neutrophils Percent Auto 66.4 % (45.5-73.1); Platelet Count Result 359 k/mm3 (150-375); Red Blood Count 4.66 M/mm3 (4.2-5.4); Red Cell Distribution Width 13.5 % (11.5-14.5); White Blood Count 10.7 K/mm3 (4.5-10.0)
[2023-07-26 15:25] LABS: Alanine Aminotransferase 50 U/L (6-35); Albumin Level 4.3 g/dL (3.5-5.1); Alkaline Phosphatase 98 U/L (38-126); Anion Gap 7 mmol/L (8-16); Aspartate Amino Transferase 28 U/L (14-36); Bilirubin,Total 0.9 mg/dL (0.2-1.3); Blood Urea Nitrogen 4 mg/dL (7-17); Calcium 9.2 mg/dL (8.4-10.2); Carbon Dioxide 27 mmol/L (22-30); Chloride 107 mmol/L (98-107); Estimated CRCL calculation 94 ml/min; Estimated Glomerular Filt Rate > 60; Glucose 122 mg/dL (65-110); Lipase 61 U/L (23-300); Potassium 3.8 mmol/L (3.4-5.0); Sodium 141 mmol/L (137-145)
[2023-07-26 18:22] VITALS: BP 130/110; O2SAT 96
[2023-07-26 18:30] VITALS: BP 120/91; O2SAT 98
--- NOTE | 2023-07-26 18:49 | ED.ABDPAIN ---
HPI - Abdominal Pain General Chief Complaint: Abdominal Pain Stated Complaint: abd pain Time Seen by Provider: 07/26/23 18:22 Source: patient Mode of arrival: ambulatory Limitations: no limitations History of Present Illness HPI narrative: This is a 32-year-old female that presents to the emergency department for right upper quadrant pain. Reports she has been struggling with this over the last year. She was seen in the ER yesterday and diagnosed with gallstones. Given outpatient follow-up with surgery. Reports persistent pain today which prompted her to be seen again. She did not take anything for pain. Reports associated nausea. Denies fever, or vomiting. Related Data Home Medications Medication Instructions Recorded Confirmed bupropion HCl 300 mg 24 hr tablet, 300 mg PO DAILY 08/26/21 01/29/22 extended release norethindrone (contraceptive) 0.35 0.35 mg PO DAILY 08/26/21 01/29/22 mg tablet (Incassia) omeprazole 20 mg capsule,delayed 20 mg PO DAILY 01/29/22 01/29/22 release Allergies Allergy/AdvReac Type Severity Reaction Status Date / Time venlafaxine [From Effexor] Allergy Rash Verified 07/25/23 20:08 medical tape AdvReac Unknown Unknown Uncoded 07/25/23 20:08 Review of Systems Review of Systems: CONSTITUTIONAL: Denies fever GASTROINTESTINAL: Reports abdominal pain, nausea, vomiting All systems reviewed & are unremarkable except as noted in HPI and below PMFSH Past Medical History Medical History (Updated 07/26/23 @ 20:21 by Dana Ragsdale PA-C) History of anxiety History of gastroesophageal reflux (GERD) Family History Family History Father Family history of cardiac disorder SVT (supraventricular tachycardia) Grandparent Family history of lung cancer Sibling Family history of type 2 diabetes mellitus Mother Endometrial cancer Social History Social History Smoking status: Former smoker Second hand tobacco smoke exposure: No Alcohol intake: current Substance use: former Gender identity (if verbalized by the patient): Female Spiritual care concerns: No Exam Narrative: GENERAL: Well-appearing, well-nourished, and in no acute distress. HEAD: Normocephalic, atraumatic. EYES: EOMI. CHEST: Clear to auscultation. No respiratory distress. No wheezes rales or rhonchi HEART: Regular rate and rhythm. No murmur heard. Normal peripheral pulses. ABDOMEN: Soft, nondistended, normal active bowel sounds. Mild tenderness to palpation in the right upper quadrant, without guarding EXTREMITIES: Normal range of motion. No edema. SKIN: Warm, dry, no rash. NEURO: No focal deficits. Alert and oriented x3. PSYCH: Normal mood and affect Course Course Emergency Course: Patient updated on her workup. Resting comfortably Vital Signs Vital signs: Vital Signs Temperature 97.8 F 07/26/23 14:47 Pulse Rate 116 H 07/26/23 14:47 Respiratory Rate 18 07/26/23 14:47 Blood Pressure 132/96 H 07/26/23 14:47 Pulse Oximetry 100 07/26/23 14:47 Oxygen Delivery Room Air 07/26/23 14:47 Temperature 97.8 F 07/26/23 14:47 Pulse Rate 88 07/26/23 20:15 Respiratory Rate 15 07/26/23 20:15 Blood Pressure 116/78 07/26/23 20:15 Pulse Oximetry 100 07/26/23 20:15 Oxygen Delivery Room Air 07/26/23 14:47 MDM - Abdominal Pain MDM Narrative Medical decision making narrative: Patient presents to the emergency department for right upper quadrant pain. Reports ongoing over the last year. Was seen in the ER yesterday and diagnosed with gallstones. Mildly tachycardic upon arrival, this normalized with IV fluids. She is afebrile and nontoxic appearing. CBC with mild leukocytosis to 10.7. Metabolic panel with mild elevation in ALT to 50. Otherwise no concerning findings. Her lipase is normal. CT scan of her abdomen and pelvis yesterd
[2023-07-26] MEDS: ONDANSETRON INJ 4 MG/2 ML VIAL IV PUSH (18:57)
[2023-07-26] MEDS: PANTOPRAZOLE SODIUM IV 40 MG VIAL IV PUSH (18:57)
[2023-07-26] MEDS: MORPHINE SULFATE (*CRX) 4 MG/ML INJ IV PUSH (18:57)
[2023-07-26] MEDS: SODIUM CHLORIDE 0.9% IV 1,000 ML 999 ML IV CONT (18:58)
[2023-07-26] MEDS: KETOROLAC 15 MG/ML VIAL (*BKC) IV PUSH (19:02)
[2023-07-26 20:15] VITALS: BP 116/78; PULSE 88; RESP 15; O2SAT 100
== END 2023-07-26 21:00 | disposition home or self-care (01) ==
PROVIDERS: Student in an Organized Health Care Education/Training Program; Emergency Provider Physician Assistant; PCP Physician Assistant
DX: K80.50 Calculus of bile duct without cholangitis or cholecystitis without obstruction (principal); K21.9 Gastro-esophageal reflux disease without esophagitis; F41.9 Anxiety disorder, unspecified; Z87.891 Personal history of nicotine dependence
CPT/HCPCS: 36415; 80053; 83690; 85025; 96361; 96374; 96375; 99284; C9113; J1885; J2270; J2405; J7030

== ENCOUNTER 2023-08-06 08:49 | Outpatient (CLI) | payer OTHER, SELFPAY ==
[2023-08-06 10:17] LABS: Amylase 72 U/L (30-110)
== END 2023-08-06 08:50 | disposition home or self-care (01) ==
PROVIDERS: PCP Physician Assistant; Visit Provider Surgery
DX: K80.20 Calculus of gallbladder without cholecystitis without obstruction (principal); Z01.818 Encounter for other preprocedural examination
CPT/HCPCS: 36415; 82150

== ENCOUNTER 2023-08-08 01:19 | Day surgery (SDC) | payer OTHER, SELFPAY ==
[2023-07-31 12:06] VITALS: BMI 26.5
--- NOTE | 2023-07-31 12:11 | PC.NURSE ---
Report to the Outpatient Waiting Room, entrance under the green pavilion located off [facility], at time 10:00 on date 08/08/23. Planned Procedure Time: 12:00. Time changes happen often and if your time is changed the preop area will call you the afternoon before. - You and your visitor will be asked to self-screen and do not enter if you have any COVID symptoms. - A mask is optional within the hospital at this time. Patients may have clear liquids (water, carbonated beverages, clear teas, apple juice) until 3 hours prior to surgery (9:00) with a maximum of 20 ounces. - No food from midnight until time of surgery Take the following medications with a SIP of water the morning of surgery: NONE DO NOT STOP ANY OF YOUR OTHER PRESCRIPTION MEDICATIONS PRIOR TO SURGERY ?EXCEPT THE FOLLOWING Medications to discontinue per physician: N/A Date to take last dose: N/A Please no make-up, nail montenegrin, hairspray, perfume, deodorant, or body powder the day of surgery. No jewelry (including any body piercings) or valuables the day of surgery, leave them at home. Please take a shower or bath the night before, or the morning of, surgery with an antibacterial soap. Wear comfortable, loose fitting clothing. - Jewelry must be removed prior to entering the operating room. Rings and piercings that are not removed may be cut off. - The hospital will not accept responsibility for valuables. - Please leave all valuables, including medications, at home the day of surgery. If you are going home after surgery, a licensed industrial tractor driver must drive you home. - NO public transportation without another adult if you receive anesthesia. - We recommend that an adult stay with you for 24 hours following discharge. - We also recommend that you do not drive, make important decision, drink alcoholic beverages, or take any drugs that were not prescribed by your health care provider for at least 24 hours after your discharge time. Follow any additional instructions given to you from your surgeon. If you or anyone in your household have experienced Covid symptoms in the past week, please notify your surgeon or the nurse liaison at the phone number below for possible testing. Telephone instructions given to PT - ADI SHEPPARD and asked if any additional questions and then verbalized understanding. Patient advised to call surgeon office or pre surgery nurse liaison [phone] if any additional questions.
[2023-08-08] MEDS: ACETAMINOPHEN 500 MG TABLET 1000 MG PO (10:34)
[2023-08-08] MEDS: KETOROLAC 15 MG/ML VIAL (*BKC) IV PUSH (10:34)
--- NOTE | 2023-08-08 12:12 | WPDHPUPDATE1 ---
History and Physical Update Update Date/Time: 08/08/23 12:12 History and Physical has been reviewed, including an updated exam of the patient. There are NO changes in the patient's condition. Risks, benefits, and alternatives have been discussed and questions answered. Patient agrees to proceed with procedure.
--- NOTE | 2023-08-08 12:23 | P.PNAN_ITS ---
Anes - Initial Pre Proc Eval Procedure: Operation Date: 08/08/23 12:00 Proposed Procedures p Laparoscopic Cholecystectomy Possible Open - Giorgi wSann MD Date/Time: 08/08/23 12:23 Surgeon: Giorgi Swann MD Pre Op Diagnosis: symptomatic cholelithiasis Patient Data Age: 32 Gender: F Height: 1.6 m Weight: 66.8 kg Allergies Allergy/AdvReac Type Severity Reaction Status Date / Time venlafaxine [From Effexor] Allergy Rash Verified 08/08/23 11:12 medical tape AdvReac Unknown Rash Uncoded 08/08/23 11:12 Home Medications Medication Instructions Recorded Confirmed Type omeprazole 20 mg capsule,delayed 20 mg PO DAILY 01/29/22 08/08/23 History release ondansetron 4 mg disintegrating 4 mg PO Q8H PRN nausea and 07/26/23 08/08/23 Rx tablet vomiting #20 tabs atomoxetine 80 mg capsule 80 mg PO DAILY 07/31/23 08/08/23 History (Strattera) azelastine 137 mcg (0.1 %) nasal 1 spray intranasal DAILY 07/31/23 08/08/23 History spray aerosol drospirenone (contraceptive) 4 mg 4 mg PO DAILY 07/31/23 08/08/23 History (28) tablet (Slynd) loratadine-pseudoephedrine ER 10 1 tablet PO DAILY 07/31/23 08/08/23 History mg-240 mg tablet,extended [id number] (Claritin-D 24 Hour) Patient hx anesthesia problems: none Family hx anesthesia problems: none Results Review: All pre-operative results and documents have been reviewed as part of the pre- operative evaluation. [facility] Past Medical History Medical History History of anxiety History of gastroesophageal reflux (GERD) Family History Family History Father Family history of cardiac disorder SVT (supraventricular tachycardia) Grandparent Family history of lung cancer Sibling Family history of type 2 diabetes mellitus Mother Endometrial cancer Social History Social History Smoking packs per day: 1 Smoking cigarettes per day: 20.0 Years smoked: 15 Smoking pack-years: 15.00 Smoking status: Current every day smoker Tobacco type: cigarettes Second hand tobacco smoke exposure: No Alcohol intake: current Alcohol use details: 4/YEAR Substance use: current Substance use type: marijuana Last use: JUN 2024 Living arrangements: with family Gender identity (if verbalized by the patient): Female Spiritual care concerns: No Anes - Eval Final PreProcedure Day of Procedure 08/08/23 12:23 Patient weight: normal Heart: regular rate and rhythm Lungs: decreased breath sounds Airway: Mallampati scale class II Neurological: alert and oriented Last oral intake: >/= 8 hours ASA classification: III Emergent: no Anesthetic plan: proceed Anesthesia type and monitoring: general ETT and standard monitoring Results Review: All pre-operative results and documents have been reviewed as part of the pre- operative evaluation. Informed Consent: The patient's anesthetic plan and its attendant risks and benefits were discussed with the patient/family/POA. Questions were solicited and answers provided to the satisfaction of the patient/family/POA.
[2023-08-08] MEDS: ceFAZolin 2 GM/D5W 50 ML 2 GM/50 ML BAG IVPB (12:40)
[2023-08-08] MEDS: LIDO 1%/EPINEPHRINE 1:100,000 50 ML VIAL 30 ML INFILTRATE (13:06)
[2023-08-08 13:41] VITALS: BP 115/74; PULSE 89; RESP 14; TEMP 36.5; O2SAT 100
[2023-08-08] MEDS: LACTATED RINGERS 1,000 ML 30 ML IV CONT ×2 (13:41→15:01)
[2023-08-08] MEDS: fentaNYL CITRATE INJ (*CRX) 100 MCG/2 ML VIAL 25 MCG IV PUSH ×4 (13:51→14:12)
--- NOTE | 2023-08-08 13:51 | PM.OP ---
Procedure Note - Brief Procedure Note - Brief Date of procedure: 08/08/23 symptomatic cholelithiasis Post-op diagnosis: Same Procedure performed: Laparoscopic cholecystectomy Surgeon: Giorgi Swann MD Anesthesia: GETA Findings: Gallbladder was distended with minimal thickening. Cystic mass seen just anterior lateral to the gallbladder coming from the retroperitoneum consistent with the known 5cm right renal cyst. Implants: None Estimated blood loss (mL): 25 Drains: No Packing: No Pathology: Yes (Gallbladder and contents to pathology) Complications: No immediate complications Condition: Stable Disposition: PACU
[2023-08-08 14:07] VITALS: BP 107/75; PULSE 66; RESP 14; O2SAT 100
[2023-08-08] MEDS: ONDANSETRON INJ 4 MG/2 ML VIAL IV PUSH (14:12)
[2023-08-08 14:20] VITALS: BP 115/68; PULSE 84; RESP 16; O2SAT 100
[2023-08-08 14:42] VITALS: BP 104/60; PULSE 73; RESP 16
[2023-08-08] MEDS: oxyCODONE HCL (*CRX) 5 MG TAB IR PO (15:00)
[2023-08-08 15:10] VITALS: BP 109/60; PULSE 67; RESP 16
[2023-08-08 15:40] VITALS: BP 115/64; PULSE 79; RESP 16
--- NOTE | 2023-08-09 13:16 | W.PM.PROC2 ---
Procedure Note - Detailed Date of Procedure 08/09/23 Pre-op Diagnosis Symptomatic cholelithiasis Post-op Diagnosis Same Procedure Performed Laparoscopic cholecystectomy. Surgeon Giorgi Swann MD Anesthesia General Indications Patient is a 2-year-old white female who has had presentations to the emergency room for right upper quadrant abdominal pain. On imaging she has cholelithiasis in the gallbladder. No evidence of chronic or acute cholecystitis was seen. She continues to have symptoms with eating and so she presents now for a elective laparoscopic cholecystectomy. Findings Gallbladder had minimal thickening. Adhesions of the omentum or stomach or duodenum to the gallbladder wall. Description of Procedure After informed consent was obtained patient brought to the operating room she was placed supine position and general endotracheal anesthesia was administered. The abdomen was then prepped and draped usual sterile fashion. A time-out was then performed correctly identifying the patient as well as procedure to be performed. She was given perioperative IV antibiotics. I then entered the abdomen the left upper quadrant utilizing a 5mm Optiview port. Once inside the abdomen insufflated to adequate pneumoperitoneum of 15mmHg of CO2. There were no adhesions around the umbilicus so then I placed a 5minute periumbilical trocar port. Laparoscopic switched over to the periumbilical trocar port and then looking to the upper portion of the abdomen placed a 10mm epigastric trocar port and 2 right lateral subcostal 5mm trocar ports. The gallbladder was distended but there were no adhesions to the gallbladder. I was able to gallbladder with laparoscopic grasper at the dome of the gallbladder was elevated over the right have liver towards right shoulder. Second grasper used hold gallbladder at the infundibulum. I then proceed to strip down the visceral peritoneum off of the infundibular gallbladder identified the cystic duct. The cystic duct was then dissected out circumferentially. The cystic artery was identified and dissected out circumferentially as well. Posterior wall the gallbladder at the infundibulum dissected free of the liver to the critical view was obtained. At this point I placed 2 clips proximally in cystic duct and 2 clips distally high on infundibular gallbladder. The cystic duct was then divided with Endo Nba. A slower fashion cystic artery is clipped and divided as well. The gallbladder was then resected off the liver utilized electrocautery. Was some spillage of bile but no spillage of gallstones from the gallbladder. The gallbladder was placed into an Endo-Catch bag and brought out through the epigastric port site. It was passed off table sent to pathology with its contents. I then irrigated out the right upper quadrant the abdomen copious amounts of sterile saline solution. The pelvis irrigated out as well. The bile-stained fluid from the right upper quadrant from the pelvis was then aspirated. I then removed all the trocar ports under visualization all port sites appeared hemostatic after ensuring hemostasis in the gallbladder bed. The abdomen was then allowed to decompress. I then irrigated all the port sites sterile saline solution hemostasis was good. I then closed the 10mm epigastric trocar port fascial defect utilizing 0 Vicryl suture at the fascial level. The skin edges in all the port sites were then approximated utilizing a running subcuticular 4 Monocryl suture. Incisions were then cleaned the skin glue sterile dressings were applied. The patient tolerated the procedure well no complications. All sponges, needles, and instrument counts were correct at the end procedure. EBL was _20__cc. The patient was awakened and taken to recovery in stable and satisfactory condition. Implants None Estimated Blood Loss 20 Drains No Packing No Pathology Yes (Gallbladder and contents sent to pathology) Complications No imme
== END 2023-08-08 15:59 | disposition home or self-care (01) ==
PROVIDERS: PCP Physician Assistant; Visit Provider Surgery
PROC: 0FT44ZZ Resection of Gallbladder, Percutaneous Endoscopic Approach (ICD-10-PCS; CPT 47562; principal; 2023-08-08 12:00)
DX: D13.5 Benign neoplasm of extrahepatic bile ducts (principal); F41.9 Anxiety disorder, unspecified; K21.9 Gastro-esophageal reflux disease without esophagitis; F17.210 Nicotine dependence, cigarettes, uncomplicated; Z82.49 Family history of ischemic heart disease and other diseases of the circulatory system; Z80.49 Family history of malignant neoplasm of other genital organs; Z80.1 Family history of malignant neoplasm of trachea, bronchus and lung
CPT/HCPCS: 47562; 88304; A9270; C1713; J0690; J1100; J1596; J1885; J2250; J2405; J2704; J2710; J3010; J7120

== ENCOUNTER 2023-08-11 13:24 | Emergency (ER) | payer OTHER, SELFPAY ==
--- NOTE | ~2023-08-11 | XR_ITS ---
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 RESULT: Lines, tubes, and devices: Cholecystectomy clips. Lungs and pleura: Clear. Cardiomediastinal silhouette: Stable. Other: No acute osseous or upper abdominal finding. IMPRESSION: No acute cardiopulmonary process. Reviewed, dictated and finalized at location K. 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
--- NOTE | ~2023-08-11 | CT_ITS ---
EXAMINATION: CT abdomen pelvis w con DATE: 08/11/2023 16:53 INDICATION: Fever. Right upper quadrant abdominal pain. Status post cholecystectomy. TECHNIQUE: Computed tomography (CT) of the abdomen and pelvis was performed with 100 CC Omnipaque 350 intravenous contrast. Automated exposure control and iterative reconstruction technique were employe d. Exam dose: 347.95 mGy-cm total exam DLP. COMPARISON: 07/25/2023 CT abdomen pelvis FINDINGS: The lung bases are clear of infiltrate or consolidation. Normal heart size. No pericardial or pleural effusion. Status post cholecystectomy. Probable right hepatic hemangioma. The liver, spleen, pancreas are otherwise unremarkable. No bile du ct or pancreatic duct dilatation. Septated upper pole approximately 5 by 6 cm right renal cyst. The kidneys are otherwise unremarkable. No urinary tract calculus or hydroureteronephrosis. The uterus and adnexal areas are unremarkable. Normal caliber of the abdominal aorta. No intraperitoneal or retroperitoneal or pelvic mass lesion or adenopathy or ascites. Normal appendix. There is a prominent amount of fecal material in the rectum and colon but no evidenc e of bowel obstruction. No intraperitoneal free air. Included skeletal structures are unremarkable. IMPRESSION: Recent cholecystectomy; no abscess or biloma is evident Probable right hepatic hemangioma 5 by 6 cm septated upper pole right renal cyst Normal appendix Reviewed, dictated and finalized at Location A. Reviewed, dictated and finalized at location B. 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
[2023-08-11 13:32] VITALS: BP 128/86; PULSE 112; RESP 16; TEMP 36.6; O2SAT 100
--- NOTE | 2023-08-11 14:13 | ED.GENADULT ---
HPI - General Adult General Chief complaint: Recheck/Abnormal Lab/Rx <Aleks Corcoran PA-C - Last Filed: 08/11/23 14:16> Stated complaint: FEVER S/P HAIDER <Aleks Corcoran PA-C - Last Filed: 08/11/23 14:16> Time Seen by Provider: 08/11/23 14:26 <Aleks Corcoran PA-C - Last Filed: 08/11/23 14:16> Focused HPI: This is a 32-year-old female is s/p elective laparoscopic cholecystectomy day 2 who presents for chief complaint of fever and increasing abdominal pain. Reports GENERAL: Well-appearing, well-nourished, and in no acute distress. HEAD: Normocephalic, atraumatic. CHEST: Clear to auscultation. No respiratory distress. HEART: Regular rate and rhythm. NEURO: Alert and oriented x3. Patient screened in triage and initial orders placed. Additional care and disposition to be based upon diagnostic testing and treatment. <Aleks Corcoran PA-C - Last Filed: 08/11/23 14:16> History of Present Illness HPI narrative: 32-year-old female presents emergency department for evaluation for low-grade fever and pain after recent cholecystectomy. At time of evaluation patient states she does feel improved. Patient was afebrile. <Héctor Gasca MD - Last Filed: 08/12/23 08:07> Related Data Home medications: Home Medications Medication Instructions Recorded Confirmed omeprazole 20 mg capsule,delayed 20 mg PO DAILY 01/29/22 08/08/23 release atomoxetine 80 mg capsule 80 mg PO DAILY 07/31/23 08/08/23 (Strattera) azelastine 137 mcg (0.1 %) nasal 1 spray intranasal DAILY 07/31/23 08/08/23 spray aerosol drospirenone (contraceptive) 4 mg 4 mg PO DAILY 07/31/23 08/08/23 (28) tablet (Slynd) loratadine-pseudoephedrine ER 10 1 tablet PO DAILY 07/31/23 08/08/23 mg-240 mg tablet,extended [id number] (Claritin-D 24 Hour) <Aleks Corcoran PA-C - Last Filed: 08/11/23 14:16> Allergies/adverse reactions: Allergies Allergy/AdvReac Type Severity Reaction Status Date / Time venlafaxine [From Effexor] Allergy Rash Verified 08/11/23 16:54 medical tape AdvReac Unknown Rash Uncoded 08/08/23 11:12 <Aleks Corcoran PA-C - Last Filed: 08/11/23 14:16> Review of Systems Review of Systems: All systems reviewed & are unremarkable except as noted in HPI and below <Héctor Gasca MD - Last Filed: 08/12/23 08:07> PMFSH Past Medical History Medical History: Medical History History of anxiety History of gastroesophageal reflux (GERD) <Aleks Corcoran PA-C - Last Filed: 08/11/23 14:16> Family History Family History: Family History Father Family history of cardiac disorder SVT (supraventricular tachycardia) Grandparent Family history of lung cancer Sibling Family history of type 2 diabetes mellitus Mother Endometrial cancer <Aleks Corcoran PA-C - Last Filed: 08/11/23 14:16> Social History Social History: Social History Smoking packs per day: 1 Smoking cigarettes per day: 20.0 Years smoked: 15 Smoking pack-years: 15.00 Smoking status: Current every day smoker Tobacco type: cigarettes Second hand tobacco smoke exposure: No Alcohol intake: current Alcohol use details: 4/YEAR Substance use: current Substance use type: marijuana Last use: JUN 2024 Living arrangements: with family Gender identity (if verbalized by the patient): Female Spiritual care concerns: No <Aleks Corcoran PA-C - Last Filed: 08/11/23 14:16> Exam Narrative: APPEARANCE: Well appearing, no pain, no distress, well-nourished. HEAD: normocephalic, atraumatic. EYES: PERRLA/EOMI, conjunctivae clear. NOSE: Normal no drainage NECK: Supple. No adenopathy, no masses. RESPIRATORY: Airway patent, respirations nonlabored. Clear to auscultation bilaterally, no rales, rhonchi, wheezing. CARDIOVASCULAR:
[2023-08-11 14:45] LABS: Basophils Absolute Auto 0.1 K/mm3 (0.0-0.1); Basophils Percent Auto 0.5 % (0.2-1.2); Eosinophils Absolute Auto 0.1 K/mm3 (0-0.3); Hematocrit 39.6 % (37.0-47.0); Hemoglobin 13.4 g/dL (12.0-15.0); Immature Granulocyte Absolute 0.02 K/mm3 (0.00-0.031); Immature Granulocyte Percent A 0.2 % (0-0.5); Lymphocytes Absolute Auto 2.47 K/mm3 (0.9-3.2); Lymphocytes Percent Auto 23.7 % (18.3-44.2); Mean Corpuscular HGB Conc 33.8 g/dl (32-36); Mean Corpuscular Hemoglobin 29.1 pg (26-34); Mean Corpuscular Volume 85.9 fl (80-100); Monocytes Absolute Auto 0.6 K/mm3 (0.1-0.6); Monocytes Percent Auto 5.5 % (2.6-8.5); Neutrophils Absolute Auto 7.2 K/mm3 (1.3-6.7); Neutrophils Percent Auto 69.1 % (45.5-73.1); Platelet Count Result 339 k/mm3 (150-375); Red Blood Count 4.61 M/mm3 (4.2-5.4); Red Cell Distribution Width 13.5 % (11.5-14.5); White Blood Count 10.4 K/mm3 (4.5-10.0)
[2023-08-11] MEDS: ONDANSETRON HCL ODT 4 MG TABLET PO (14:48)
[2023-08-11 14:59] LABS: Alanine Aminotransferase 73 U/L (6-35); Albumin Level 4.4 g/dL (3.5-5.1); Alkaline Phosphatase 99 U/L (38-126); Anion Gap 8 mmol/L (8-16); Aspartate Amino Transferase 46 U/L (14-36); Bilirubin,Total 0.7 mg/dL (0.2-1.3); Blood Urea Nitrogen 6 mg/dL (7-17); Calcium 9.3 mg/dL (8.4-10.2); Carbon Dioxide 26 mmol/L (22-30); Chloride 106 mmol/L (98-107); Estimated CRCL calculation 81 ml/min; Estimated Glomerular Filt Rate > 60; Glucose 126 mg/dL (65-110); Lipase 34 U/L (23-300); Potassium 3.6 mmol/L (3.4-5.0); Sodium 140 mmol/L (137-145)
[2023-08-11 15:01] LABS: Lactic Acid Reflex 1.1 mmol/L (0.7-2.0)
[2023-08-11 16:15] LABS: Appearance Urine Clear (Clear); Bacteria Urine None Seen /hpf; Bilirubin Urine Negative (Negative); Blood Urine Negative (Negative); Color Urine Yellow (Yellow); Glucose Urine UA Negative (Negative); Ketones Urine Negative (Negative); Leukocyte Esterase Ur Trace LEU/UL (Negative); Nitrate Urine Negative (Negative); Non Pathogenic Casts 0-2; Protein Urine Negative (Negative); RBC Urine 0-2 /hpf (0-2); Specific Grav Ur 1.012 (1.001-1.035); Squamous Epithelial Cell Urine Occasional /hpf (Few); Urobilinogen Urine 0.2 mg/dL (<2.0); pH Urine 6.5 (5.0-9.0)
[2023-08-11 16:19] LABS: Add Urine Microscopic? YES
[2023-08-11 16:46] LABS: Influenza A QL RT-PCR Negative (Negative); Influenza B QL RT-PCR Negative (Negative); RSV RNA, RT-PCR Negative (Negative); SARS-CoV-2 RNA PCR Negative (Negative)
[2023-08-11 18:21] VITALS: BP 118/86; PULSE 92; RESP 23; O2SAT 100
== END 2023-08-11 18:22 | disposition home or self-care (01) ==
PROVIDERS: Physician Assistant; Emergency Provider Emergency Medicine; PCP Physician Assistant
DX: G89.18 Other acute postprocedural pain (principal); R10.9 Unspecified abdominal pain; Z20.822 Contact with and (suspected) exposure to COVID-19; K21.9 Gastro-esophageal reflux disease without esophagitis; F41.9 Anxiety disorder, unspecified; F17.210 Nicotine dependence, cigarettes, uncomplicated; Z90.49 Acquired absence of other specified parts of digestive tract; N28.1 Cyst of kidney, acquired; R93.2 Abnormal findings on diagnostic imaging of liver and biliary tract
CPT/HCPCS: 36415; 71046; 74177; 80048; 80076; 81001; 81025; 83605; 83690; 85025; 87086; 87637; 99284; A9270; Q9967

== ENCOUNTER 2023-08-29 20:02 | Emergency (ER) | payer OTHER, SELFPAY ==
[2023-08-29 20:05] VITALS: BP 130/98; PULSE 118; RESP 15; TEMP 36.4; O2SAT 100
[2023-08-29 21:08] LABS: Basophils Percent Auto 0.5 % (0.2-1.2); Eosinophils Absolute Auto 0.2 K/mm3 (0-0.3); Hematocrit 38.9 % (37.0-47.0); Hemoglobin 13.2 g/dL (12.0-15.0); Immature Granulocyte Absolute 0.01 K/mm3 (0.00-0.031); Immature Granulocyte Percent A 0.1 % (0-0.5); Lymphocytes Absolute Auto 2.92 K/mm3 (0.9-3.2); Lymphocytes Percent Auto 33.8 % (18.3-44.2); Mean Corpuscular HGB Conc 33.9 g/dl (32-36); Mean Corpuscular Hemoglobin 28.7 pg (26-34); Mean Corpuscular Volume 84.6 fl (80-100); Mean Platelet Volume 9.6 fl (7.4-10.4); Monocytes Absolute Auto 0.6 K/mm3 (0.1-0.6); Monocytes Percent Auto 6.8 % (2.6-8.5); Neutrophils Absolute Auto 4.9 K/mm3 (1.3-6.7); Neutrophils Percent Auto 56.8 % (45.5-73.1); Platelet Count Result 364 k/mm3 (150-375); Red Cell Distribution Width 13.2 % (11.5-14.5); White Blood Count 8.6 K/mm3 (4.5-10.0)
[2023-08-29 21:18] LABS: Alanine Aminotransferase 56 U/L (6-35); Albumin Level 4.4 g/dL (3.5-5.1); Alkaline Phosphatase 108 U/L (38-126); Anion Gap 4 mmol/L (8-16); Aspartate Amino Transferase 31 U/L (14-36); Bilirubin,Total 0.6 mg/dL (0.2-1.3); Blood Urea Nitrogen 7 mg/dL (7-17); Calcium 9.8 mg/dL (8.4-10.2); Carbon Dioxide 29 mmol/L (22-30); Chloride 106 mmol/L (98-107); Estimated CRCL calculation 89 ml/min; Estimated Glomerular Filt Rate > 60; Glucose 87 mg/dL (65-110); Potassium 3.9 mmol/L (3.4-5.0); Sodium 139 mmol/L (137-145)
[2023-08-30] VITALS (10 sets, daily range): BP systolic 108–127; BP diastolic 81–93; PULSE 82–94; RESP 14–21; TEMP 36.9; O2SAT 97–100
--- NOTE | 2023-08-30 05:57 | ED.GENADULT ---
HPI - General Adult General Chief complaint: Skin/Abscess/Foreign Body Stated complaint: mastitis Time Seen by Provider: 08/30/23 05:57 History of Present Illness HPI narrative: This is a 32-year-old female presenting ED with chief complaint of mastitis. In reality the patient's true complaint is low energy x1 month. Patient had a cholecystectomy 1 month ago. Since then she has not felt her normal self. She has low energy. She says she has low-grade fevers with a temperature ranging from 99.1-100.2. She has followed up appropriately with her surgeon who thought her progress was going well. Additionally she was seen in the emergency department with a negative workup. The patient recently stopped breast-feeding her 3-year-old after the surgery. Since then she has not been pumping and notices she has had breast engorgement and pain. She called her OBGYN who said she probably has mastitis who put her on antibiotics. Antibiotics have not helped and she was told to come to the emergency room for evaluation. patient denies URI symptoms chest pain difficulty breathing abdominal pain or urinary symptoms. Related Data Home Medications Medication Instructions Recorded Confirmed omeprazole 20 mg capsule,delayed 20 mg PO DAILY 01/29/22 08/20/23 release atomoxetine 80 mg capsule 80 mg PO DAILY 07/31/23 08/20/23 (Strattera) azelastine 137 mcg (0.1 %) nasal 1 spray intranasal DAILY 07/31/23 08/20/23 spray aerosol drospirenone (contraceptive) 4 mg 4 mg PO DAILY 07/31/23 08/20/23 (28) tablet (Slynd) loratadine-pseudoephedrine ER 10 1 tablet PO DAILY 07/31/23 08/20/23 mg-240 mg tablet,extended [id number] (Claritin-D 24 Hour) Allergies Allergy/AdvReac Type Severity Reaction Status Date / Time venlafaxine [From Effexor] Allergy Rash Verified 08/20/23 14:58 medical tape AdvReac Unknown Rash Uncoded 08/20/23 14:58 [facility] Past Medical History Medical History History of anxiety History of gastroesophageal reflux (GERD) Surgical History Surgical History History of laparoscopic cholecystectomy 08/08/23 SAW Family History Family History Father Family history of cardiac disorder SVT (supraventricular tachycardia) Grandparent Family history of lung cancer Sibling Family history of type 2 diabetes mellitus Mother Endometrial cancer Social History Social History Smoking packs per day: 1 Smoking cigarettes per day: 20.0 Years smoked: 15 Smoking pack-years: 15.00 Smoking status: Current every day smoker Tobacco type: cigarettes Second hand tobacco smoke exposure: No Alcohol intake: current Alcohol use details: 4/YEAR Substance use: current Substance use type: marijuana Last use: JUN 2024 Living arrangements: with family Gender identity (if verbalized by the patient): Female Spiritual care concerns: No Exam Narrative: APPEARANCE: No apparent distress. Head: atraumatic. EYES: EOMI, NOSE: Atraumatic NECK: Trachea midline RESPIRATORY: No increased rate of breathing Breast exam: No areas of erythema or Localized tenderness tenderness. Breasts appear engorged with mild diffuse tenderness. CARDIOVASCULAR: RRR, ABDOMINAL: Non-distended, soft nontender, clean incision sites healing well MUSCULOSKELETAl: No obvious deformities NEURO: Alert. Moving 4/4 extremities SKIN:: Warm, dry. Normal color PSYCHIATRIC: Normal affect Course Vital Signs Vital signs: Vital Signs Temperature 97.6 F 08/29/23 20:05 Pulse Rate 118 H 08/29/23 20:05 Respiratory Rate 15 08/29/23 20:05 Blood Pressure 130/98 H 08/29/23 20:05 Pulse Oximetry 100 08/29/23 20:05 Oxygen Delivery Room Air 08/29/23 20:05 Temperature 98.4 F 08/30/23 04:49
[2023-08-30 06:35] LABS: Appearance Urine Cloudy (Clear); Bacteria Urine None Seen /hpf; Bilirubin Urine Negative (Negative); Blood Urine Negative (Negative); Color Urine Yellow (Yellow); Glucose Urine UA Negative (Negative); Ketones Urine Negative (Negative); Leukocyte Esterase Ur Trace LEU/UL (Negative); Need Manual Microscopic Reviewed; Nitrate Urine Negative (Negative); Non Pathogenic Casts 0-2; Protein Urine Negative (Negative); Specific Grav Ur 1.019 (1.001-1.035); Squamous Epithelial Cell Urine Few /hpf (Few); pH Urine 5.5 (5.0-9.0)
[2023-08-30 06:38] LABS: Add Urine Microscopic? YES
[2023-08-30 07:02] LABS: Influenza A QL RT-PCR Negative (Negative); Influenza B QL RT-PCR Negative (Negative); RSV RNA, RT-PCR Negative (Negative); SARS-CoV-2 RNA PCR Negative (Negative)
[2023-08-30] MEDS: CEPHALEXIN 500 MG CAPSULE PO (07:18)
--- NOTE | 2023-08-30 07:18 | PC.NURSE ---
Report to GEORGINA Mondragon
== END 2023-08-30 07:37 | disposition home or self-care (01) ==
PROVIDERS: Emergency Provider Emergency Medicine; PCP Physician Assistant
DX: N39.0 Urinary tract infection, site not specified (principal); R53.83 Other fatigue; Z20.822 Contact with and (suspected) exposure to COVID-19; K21.9 Gastro-esophageal reflux disease without esophagitis; F41.9 Anxiety disorder, unspecified; F17.210 Nicotine dependence, cigarettes, uncomplicated; Z90.49 Acquired absence of other specified parts of digestive tract
CPT/HCPCS: 36415; 80053; 81001; 81025; 85025; 87086; 87637; 99283; A9270

== ENCOUNTER 2023-12-17 11:55 | Outpatient (CLI) | payer OTHER, SELFPAY ==
--- NOTE | ~2023-12-17 | XR_ITS ---
Right Hand Technique: PA, oblique, and lateral views were obtained. Clinical History: Pain Findings: No acute fracture or dislocation is seen. Osseous alignment is anatomic. Joint spaces are p reserved. Soft tissues are unremarkable. Impression: Unremarkable right hand. Reviewed, dictated and finalized at location M. Impression: Unremarkable right hand.
== END 2023-12-17 11:56 | disposition home or self-care (01) ==
LOC: ANHIMG 12:00
PROVIDERS: PCP Physician Assistant; Visit Provider Physician Assistant
DX: M79.641 Pain in right hand (principal)
CPT/HCPCS: 73130

== ENCOUNTER 2024-03-03 09:22 | Outpatient (CLI) | payer OTHER, SELFPAY ==
--- NOTE | ~2024-03-03 | CT_ITS ---
CT of the Abdomen and Pelvis: Indication: Gallbladder neoplasm, left flank pain Technique: 2.5 mm axial scans were obtained through the abdomen and pelvis following intravenous adm inistration of 100 cc of Omnipaque 350. Dose reduction technique was used on this scan by utilizing a utomated exposure control and iterative reconstruction technique. The dose-length product (DLP) was 3 56.03 mGy-cm. COMPARISON: 08/11/2023 Findings: Scans through the lung bases are unremarkable. Stable 1 cm hypodense lesion in the liver (axial image 40). The spleen, pancreas, adrenals and left k idney are within normal limits. Right renal cyst present. Cholecystectomy clips are present. No evide nce of aortic aneurysm. No lymphadenopathy. No bowel obstruction or bowel wall thickening. There is no evidence to suggest acute appendicitis. Images through the pelvis were performed. Urinary bladder unremarkable. No pelvic mass seen. No ascit es. Impression: No definite evidence for malignancy or metastatic disease. Stable 1 cm hypodense liver lesion, likely hemangioma. Reviewed, dictated and finalized at location . Impression: No definite evidence for malignancy or metastatic disease. Stable 1 cm hypodense liver lesion, likely hemangioma.
== END 2024-03-03 09:23 | disposition home or self-care (01) ==
PROVIDERS: PCP Physician Assistant; Visit Provider Internal Medicine Gastroenterology
DX: K76.9 Liver disease, unspecified (principal); R10.9 Unspecified abdominal pain; D49.0 Neoplasm of unspecified behavior of digestive system
CPT/HCPCS: 74177; Q9967

== ENCOUNTER 2024-05-19 00:34 | Emergency (ER) | payer OTHER, SELFPAY ==
[2024-05-19 00:48] VITALS: BP 123/88; PULSE 98; RESP 14; TEMP 36.3; O2SAT 100
--- NOTE | 2024-05-19 01:36 | PC.NURSE ---
Pt to desk to state she is leaving. Encouraged pt to stay and be seen by ERP. Pt states that her discomfort has subsided at this time and her baby at home is screaming so she has to leave. Encouraged pt to return if needed. Pt axox4, ambulatory with steady gait.
== END 2024-05-19 01:50 | disposition left against medical advice (07) ==
LOC: ANHED 01:42
PROVIDERS: PCP Physician Assistant
DX: K21.9 Gastro-esophageal reflux disease without esophagitis (principal)
CPT/HCPCS: 99199

== ENCOUNTER 2024-06-17 16:50 | Emergency (ER) | payer OTHER, SELFPAY ==
--- NOTE | ~2024-06-17 | XR_ITS ---
EXAMINATION: XR chest 2V DATE: 06/17/2024 18:17 INDICATION: Chest pain. TECHNIQUE: Frontal and lateral views of the chest were obtained. COMPARISON: Chest 2 views 08/11/2023, CT abdomen and pelvis 03/03/2024 FINDINGS: There is no pneumonia, pleural effusion, or pneumothorax. The heart size is normal. Surgica l clips in the right upper quadrant are likely from cholecystectomy. IMPRESSION: 1. No acute cardiopulmonary disease. Reviewed, dictated and finalized at location [facility]. [facility]
[2024-06-17 17:09] VITALS: BP 134/85; PULSE 93; RESP 20; TEMP 36.3; O2SAT 100
[2024-06-17 17:12] LABS: Basophils Absolute Auto 0.1 K/mm3 (0.0-0.1); Basophils Percent Auto 0.6 % (0.2-1.2); Eosinophils Absolute Auto 0.2 K/mm3 (0-0.3); Eosinophils Percent Auto 2.1 % (0-4.4); Hematocrit 42.4 % (37.0-47.0); Hemoglobin 14.5 g/dL (12.0-15.0); Immature Granulocyte Absolute 0.02 K/mm3 (0.00-0.031); Immature Granulocyte Percent A 0.2 % (0-0.5); Lymphocytes Absolute Auto 3.57 K/mm3 (0.9-3.2); Lymphocytes Percent Auto 40.1 % (18.3-44.2); Mean Corpuscular HGB Conc 34.2 g/dl (32-36); Mean Corpuscular Hemoglobin 29.5 pg (26-34); Mean Corpuscular Volume 86.2 fl (80-100); Mean Platelet Volume 9.8 fl (7.4-10.4); Monocytes Absolute Auto 0.4 K/mm3 (0.1-0.6); Monocytes Percent Auto 4.8 % (2.6-8.5); Neutrophils Absolute Auto 4.6 K/mm3 (1.3-6.7); Neutrophils Percent Auto 52.2 % (45.5-73.1); Platelet Count Result 375 k/mm3 (150-375); Red Blood Count 4.92 M/mm3 (4.2-5.4); Red Cell Distribution Width 13.5 % (11.5-14.5); White Blood Count 8.9 K/mm3 (4.5-10.0)
[2024-06-17 17:22] LABS: Alanine Aminotransferase 57 U/L (6-35); Albumin Level 4.8 g/dL (3.5-5.1); Alkaline Phosphatase 103 U/L (38-126); Anion Gap 9 mmol/L (4-12); Aspartate Amino Transferase 33 U/L (14-36); Bilirubin,Total 0.6 mg/dL (0.2-1.3); Blood Urea Nitrogen 9 mg/dL (7-17); Calcium 9.6 mg/dL (8.4-10.2); Carbon Dioxide 24 mmol/L (22-30); Chloride 105 mmol/L (98-107); Estimated Glomerular Filt Rate > 60; Glucose 92 mg/dL (65-110); Lipase 55 U/L (23-300); Potassium 3.9 mmol/L (3.4-5.0); Sodium 138 mmol/L (137-145)
[2024-06-17 17:23] LABS: Prothrombin Time 13.1 Seconds (11.1-14.7)
[2024-06-17 17:24] LABS: Partial Thromboplastin Time 30.7 Seconds (22.3-36.8)
[2024-06-17 17:33] LABS: Troponin I < 0.012 ng/mL (0.000-0.034)
--- NOTE | 2024-06-17 17:51 | ED_ITS ---
HPI - Chest Pain General Chief Complaint: Chest Pain Stated Complaint: CP, high K+ Time Seen by Provider: 06/17/24 17:44 History of Present Illness HPI narrative: Patient presents with chest pain that started yesterday, some anxiety, concern for abnormal labs from PCP 1 week ago. Recently diagnosis with GERD Related Data Home Medications ?Medication ?Instructions ?Recorded ?Confirmed ?Last Taken ?Type omeprazole 20 mg capsule,delayed 20 mg PO DAILY 01/29/22 08/20/23 Unknown History release atomoxetine 80 mg capsule 80 mg PO DAILY 07/31/23 08/20/23 Unknown History (Strattera) azelastine 137 mcg (0.1 %) nasal 1 spray intranasal DAILY 07/31/23 08/20/23 Unknown History spray drospirenone (contraceptive) 4 mg 4 mg PO DAILY 07/31/23 08/20/23 Unknown History (28) tablet (Slynd) loratadine-pseudoephedrine ER 10 1 tablet PO DAILY 07/31/23 08/20/23 Unknown History mg-240 mg tablet,extended [id number] (Claritin-D 24 Hour) Allergies Allergy/AdvReac Type Severity Reaction Status Date / Time venlafaxine (From Effexor) Allergy Rash Verified 05/19/24 00:34 medical tape AdvReac Unknown Rash Uncoded 08/20/23 14:58 Review of Systems 2 Review of Systems: All systems reviewed & are unremarkable except as noted in HPI and below PMFSH Past Medical History Medical History History of anxiety History of gastroesophageal reflux (GERD) Surgical History Surgical History History of laparoscopic cholecystectomy 08/08/23 SAW Family History Family History Father Family history of cardiac disorder SVT (supraventricular tachycardia) Grandparent Family history of lung cancer Sibling Family history of type 2 diabetes mellitus Mother Endometrial cancer Social History Social History Smoking packs per day: 1 Smoking cigarettes per day: 20.0 Years smoked: 15 Smoking pack-years: 15.00 Smoking status: Current every day smoker Tobacco type: cigarettes Second hand tobacco smoke exposure: No Alcohol intake: current Alcohol use details: 4/YEAR Substance use: current Substance use type: marijuana Last use: JUN 2024 Living arrangements: with family Gender identity (if verbalized by the patient): Female Spiritual care concerns: No Exam 2 Narrative: EXAMINATION OF ORGAN SYSTEMS/BODY AREAS: Constitutional: Vital signs per nursing GENERAL:[No acute distress, non-toxic appearing.] appears slightly anxious. HEAD: Normal with no signs of head trauma. EYES: EOMI, conjunctiva normal ENT: Hearing grossly intact LUNGS: Nonlabored breathing. Clear to auscultation bilaterally HEART: [Regular rate and rhythm] ABD: [Soft], [nontender to palpation] EXT: Normal range of motion SKIN: [No rashes or lesions.] NEURO: [Alert and oriented x 3. No gross focal sensory or strength deficits.] PSYCH: Normal affect Course Vital Signs Vital signs: Vital Signs Temperature 97.3 F L 06/17/24 17:09 Pulse Rate 93 06/17/24 17:09 Respiratory Rate 20 06/17/24 17:09 Blood Pressure 134/85 06/17/24 17:09 Pulse Oximetry 100 06/17/24 17:09 Oxygen Delivery Room Air 06/17/24 17:09 Temperature 97.8 F 06/17/24 18:08 Pulse Rate 93 06/17/24 18:08 Respiratory Rate 15 06/17/24 18:08 Blood Pressure 110/73 06/17/24 18:08 Pulse Oximetry 100 06/17/24 18:09 Oxygen Delivery Room Air 06/17/24 18:09 MDM - Chest Pain MDM Narrative Medical decision making narrative: Patient with history of GERD, anxiety, presents with chest pain that started yesterday, some anxiety, concern for abnormal labs from PCP 1 week ago. Recently diagnosis with GERD EKG done in triage negative for acute ischemic changes. Cardiac workup is initiated. EKG: Performed in triage and interpreted by me. Normal sinus rhythm. Rate 100. Normal axis. NH normal. QRS duration normal. QTc normal. No pathologic Q waves. No ST segment elevation or depression to suggest acute ischemia. some slight flattened T-waves laterally HEART score is 0 with no acute ischemic changes on EKG and negative troponin making ACS unlikely. Wells low risk with negative PERC making PE unlikely. Presentation not consistent with dissection or aneurysm without radiation of pain or pulse deficits. CXR negative for mediastinal widening. No abdominal pain or signs of sepsis that would be concerning for esophageal perforation or mediastinitis. No cardiomegaly or JVD to suggest pericardial effusion/tamponade. On repeat evaluation just prior to discharge, the patient is no acute distress. I had a long discussion with the patient and with shared decision making, she is comfortable with outpatient management. She was given clear return instructions by myself in person as well as on discharge paperwork. Procedures: Pulse oximetry interpretation - not hypoxic. EKG interpretation. Review of medical records. Lab Data 06/17/24 17:04 06/17/24 17:04 Labs: Lab Results 06/17/24 Range/Units 17:04 WBC 8.9 (4.5-10.0) K/mm3 RBC 4.92 (4.2-5.4) M/mm3 Hgb 14.5 (12.0-15.0) g/dL Hct 42.4 (37.0-47.0) % MCV 86.2 (80-100) fl MCH 29.5 (26-34) pg MCHC 34.2 (32-36) g/dl RDW 13.5 (11.5-14.5) % Plt Count 375 (150-375) k/mm3 MPV 9.8 (7.4-10.4) fl Immature Gran % (Auto) 0.2 (0-0.5) % Neut % (Auto) 52.2 (45.5-73.1) % Lymph % (Auto) 40.1 (18.3-44.2) % [place] % (Auto) 4.8 (2.6-8.5) % Eos % (Auto) 2.1 (0-4.4) % Baso % (Auto) 0.6 (0.2-1.2) % Lymph # (Auto) 3.57 H (0.9-3.2) K/mm3 [place] # (Auto) 0.4 (0.1-0.6) K/mm3 Eos # (Auto) 0.2 (0-0.3) K/mm3 Baso # (Auto) 0.1 (0.0-0.1) K/mm3 Abs Immat Gran (auto) 0.02 (0.00-0.031) K/mm3 Absolute Neuts (auto) 4.6 (1.3-6.7) K/mm3 Absolute Nucleated RBC 0.000 (0.0-0.012) K/mm3 Nucleated RBC % 0.0 (0.0-0.2) % PT 13.1 (11.1-14.7) Seconds INR 1.0 APTT 30.7 (22.3-36.8) Seconds Sodium 138 (137-145) mmol/L Potassium 3.9 (3.4-5.0) mmol/L Chloride 105 (98-107) mmol/L Carbon Dioxide 24 (22-30) mmol/L Anion Gap 9 (4-12) mmol/L BUN 9 (7-17) mg/dL Creatinine 0.80 (0.7-1.0) mg/dL Estim Creat Clear Calc Not Reportable Estimated GFR > 60 (59 - ) Glucose 92 (65-110) mg/dL Calcium 9.6 (8.4-10.2) mg/dL Total Bilirubin 0.6 (0.2-1.3) mg/dL AST 33 (14-36) U/L ALT 57 H (6-35) U/L Alkaline Phosphatase 103 (38-126) U/L Troponin I < 0.012 (0.000-0.034) ng/mL Total Protein 8.0 (6.3-8.2) g/dL Albumin 4.8 (3.5-5.1) g/dL Lipase 55 (23-300) U/L Discharge Plan Discharge Clinical Impression: Atypical chest pain Patient Disposition: Home, Self-Care Condition: Stable Instructions: Chest Pain (ED) Additional Instructions: Please follow up with your doctor; you can always return for any further issues. Patient Language: Hungarian Prescriptions: No Action omeprazole 20 mg capsule,delayed release(DR/EC) 20 mg PO DAILY Patient Comments: PT TAKES AT NOON Claritin-D 24 Hour 10-240 mg Tablet Extended Release 24 Hr 1 tablet PO DAILY Patient Comments: PT TAKES AT NOON azelastine 137 mcg (0.1 %) aerosol,spray 1 spray INTRANASAL DAILY Patient Comments: PT TAKES AT NOON atomoxetine [Strattera] 80 mg capsule 80 mg PO DAILY Patient Comments: PT TAKES AT NOON Slynd 4 mg (28) tablet 4 mg PO DAILY Patient Comments: PT TAKES AT NOON cephalexin 500 mg capsule 500 mg PO BID Qty: 10 0RF Follow-up/Referrals: Dez,LISA Mondragon [Primary Care Provider] -
[2024-06-17] MEDS: ASPIRIN 81 MG CHEWABLE TABLET 324 MG PO (18:04)
[2024-06-17 18:07] VITALS: PULSE 95
[2024-06-17 18:08] VITALS: BP 110/73; PULSE 93; RESP 15; TEMP 36.6; O2SAT 100
[2024-06-17 18:09] VITALS: O2SAT 100
== END 2024-06-17 18:43 | disposition home or self-care (01) ==
PROVIDERS: Emergency Provider Emergency Medicine; PCP Physician Assistant
DX: R07.89 Other chest pain (principal); K21.9 Gastro-esophageal reflux disease without esophagitis; F41.9 Anxiety disorder, unspecified; F17.210 Nicotine dependence, cigarettes, uncomplicated; Z90.49 Acquired absence of other specified parts of digestive tract; Z79.899 Other long term (current) drug therapy
CPT/HCPCS: 36415; 71046; 80053; 83690; 84484; 85025; 85610; 85730; 99284; A9270

== ENCOUNTER 2024-09-02 08:50 | Emergency (ER) | payer OTHER, SELFPAY ==
[2024-09-02 08:58] VITALS: BP 116/74; PULSE 91; RESP 16; TEMP 36.4; O2SAT 99
--- NOTE | 2024-09-02 08:58 | ED.LOWEXIN ---
HPI - Extremity Injury (Lower) General Chief Complaint: Extremity Injury, Lower Stated Complaint: FALL Source: patient, RN notes reviewed and old records reviewed Mode of arrival: ambulatory Limitations: no limitations History of Present Illness HPI Narrative: 33-year-old female presents to the [facility] with left toe and foot discomfort since yesterday. States that she was walking when she can is slipped and dorsiflexed both her toes and ankle. Tenderness to the dorsal aspect of foot and along all 5 toes at the M CP Related Data Home Medications ?Medication ?Instructions ?Recorded ?Confirmed ?Last Taken ?Type omeprazole 20 mg capsule,delayed 20 mg PO DAILY 01/29/22 09/02/24 Unknown History release atomoxetine 80 mg capsule 80 mg PO DAILY 07/31/23 09/02/24 Unknown History (Strattera) azelastine 137 mcg (0.1 %) nasal 1 spray intranasal DAILY 07/31/23 09/02/24 Unknown History spray drospirenone (contraceptive) 4 mg 4 mg PO DAILY 07/31/23 09/02/24 Unknown History (28) tablet (Slynd) loratadine-pseudoephedrine ER 10 1 tablet PO DAILY 07/31/23 09/02/24 Unknown History mg-240 mg tablet,extended [id number] (Claritin-D 24 Hour) atomoxetine 100 mg capsule 100 mg PO DAILY 09/02/24 09/02/24 Unknown History (Strattera) atorvastatin 40 mg tablet 40 mg PO DAILY 09/02/24 09/02/24 Unknown History pantoprazole 40 mg tablet,delayed 40 mg PO DAILY 09/02/24 09/02/24 Unknown History release sertraline 100 mg tablet 100 mg PO Q24H 09/02/24 09/02/24 Unknown History Allergies Allergy/AdvReac Type Severity Reaction Status Date / Time venlafaxine (From Effexor) Allergy Rash Verified 09/02/24 09:11 medical tape AdvReac Unknown Rash Uncoded 09/02/24 09:11 Review of Systems Review of Systems: All systems reviewed & are unremarkable except as noted in HPI and below Constitutional: Constitutional: Reports no additional constitutional complaints ENT: Reports system reviewed and no additional complaints, except as documented Cardiovascular: Cardiovascular: Reports no additional cardiovascular complaints, Denies chest pain and Denies dyspnea Respiratory: Respiratory: Reports no additional respiratory complaints, Denies chest congestion, Denies cough and Denies dyspnea Musculoskeletal: Musculoskeletal: Reports as per HPI Integumentary/Breasts: Skin/Breast: Reports system reviewed and no additional complaints, except as [facility]u [facility] Past Medical History Medical History History of gastroesophageal reflux (GERD) History of anxiety Surgical History Surgical History History of laparoscopic cholecystectomy 08/08/23 SAW Family History Family History Father Family history of cardiac disorder SVT (supraventricular tachycardia) Grandparent Family history of lung cancer Sibling Family history of type 2 diabetes mellitus Mother Endometrial cancer Social History Social History Smoking packs per day: 1 Smoking cigarettes per day: 20.0 Years smoked: 15 Smoking pack-years: 15.00 Smoking status: Current every day smoker Tobacco type: cigarettes Second hand tobacco smoke exposure: No Alcohol intake: current Alcohol use details: 4/YEAR Substance use: current Substance use type: marijuana Last use: JUN 2024 Living arrangements: with family Gender identity (if verbalized by the patient): Female Spiritual care concerns: No Comments At the time of my signature, I reviewed and agree with the nursing past medical, surgical, social, and family history. There is no relevant family history pertinent to the patient complaint. Exam Const: General: cooperative, healthy appearing, comfortable, no acute distress, well developed, alert and well nourished Nutritional Appearance: well nourished Orientation/consciousness: patient oriented x3 Limitations: no limitations HENMT: Head: normal to inspection Eyes: General: appearance normal, both eyes and all related structures Alignment and Position: alignment normal Neck: Neck: normal visual inspection and full ROM Chest: Chest palpation & inspection: normal inspection of the chest Resp: Effort & Inspection: normal respiratory effort and able to speak in complete sentences Cardio: Rate: regular rate Skin: General skin exam: normal color and no rashes or lesions noted Neuro: General: patient oriented x3, gait normal, moves all extremities and no meningeal signs Cognition (Neuro): normal cognition Speech: normal speech Gait exam (Neuro): Normal gait present Extrem: General: normal to inspection, full ROM, capillary refill normal and normal gait Left lower extremity: full ROM, normal capillary refill and foot Details: tenderness Location: of the dorsal foot, toes with normal ROM, ecchymosis and vascular exam Details: dorsalis pedis pulse present and normal capillary refill; no unusual warmth, no abrasions and no lacerations Psych: Appearance: grossly normal and well kempt Mental Status: mental status grossly normal Speech and movement: Normal speech and movement present and Clear speech present Affect: normal affect Attitude: cooperative Course Course Level of Care: Express Care Visit Vital Signs Vital signs: Vital Signs Temperature 97.5 F L 09/02/24 08:58 Pulse Rate 91 09/02/24 08:58 Respiratory Rate 16 09/02/24 08:58 Blood Pressure 116/74 09/02/24 08:58 Pulse Oximetry 99 09/02/24 08:58 Oxygen Delivery Room Air 09/02/24 08:58 Temperature 97.5 F L 09/02/24 08:58 Pulse Rate 91 09/02/24 08:58 Respiratory Rate 16 09/02/24 08:58 Blood Pressure 116/74 09/02/24 08:58 Pulse Oximetry 99 09/02/24 08:58 Oxygen Delivery Room Air 09/02/24 08:58 Reviewed MDM - Extremity Injury (Lower) MDM Narrative Medical decision making narrative: patient presents to the [facility] with left foot discomfort dorsal aspect and tenderness at the MCP joints. Patient x-ray showed no acute findings. Patient is nontoxic, vitals stable. Patient in no acute distress. Discussed treatment for contusion, sprain or strain of the foot. Patient is appropriate for outpatient treatment and follow-up Discharge instructions reviewed with patient, as well as provided in writing per nursing staff. The instructions also include specific and strict return/GO TO THE ER as well as f/u information. All questions have been answered, and the patient deny any further questions with discharge and discharge plan. Some parts of this dictation were generated by voice recognition software and may contain typographical and/or grammatical inaccuracies. Differential Diagnosis Differential diagnosis: Likely other ( contusion, foot strain, fracture) Imaging Data Radiologist's impression: EXAMINATION: XR foot LT min 3V DATE: 09/02/2024 09:09 INDICATION: Left foot pain. TECHNIQUE: 4 views of left foot were obtained. COMPARISON: Left knee radiographs 01/25/2019 FINDINGS: There is moderate hallux valgus. No fracture. There is mild osteoarthritis of first metatarsophalangeal joint and talonavicular joint. IMPRESSION: 1. Mild polyarticular osteoarthritis. 2. Moderate hallux valgus. Critical Care Time Critical Care Time Critical Care Time: No Discharge Plan Discharge Clinical Impression: Polyarticular osteoarthritis Strain of foot, left Qualifiers: Encounter type: initial encounter Qualified Code(s): S96.912A - Strain of unspecified muscle and tendon at ankle and foot level, left foot, initial encounter Patient Disposition: Home, Self-Care Condition: Stable Instructions: Antibiotic Form, Foot Sprain (ED), Arthralgia (ED) Additional Instructions: Your Xray did not show a fracture. Wear good supportive shoes at all times. Ice should be applied to help reduce swelling. It can be used for 20 to 30 minutes, every 2-3 hours while awake. Do not apply ice directly to your skin. You can alternate ibuprofen 600mg and Tylenol 650mg every 4 hours as needed for pain Please schedule a follow-up visit with your personal physician for further evaluation and treatment within 2 weeks especially if symptoms persist. For new or worsening symptoms go directly to the emergency room Patient Language: Bengali Prescriptions: No Action omeprazole 20 mg capsule,delayed release(DR/EC) 20 mg PO DAILY Patient Comments: PT TAKES AT NOON atomoxetine [Strattera] 100 mg capsule 100 mg PO DAILY atorvastatin 40 mg tablet 40 mg PO DAILY pantoprazole 40 mg tablet,delayed release (DR/EC) 40 mg PO DAILY sertraline 100 mg tablet 100 mg PO Q24H Claritin-D 24 Hour 10-240 mg Tablet Extended Release 24 Hr 1 tablet PO DAILY Patient Comments: PT TAKES AT NOON azelastine 137 mcg (0.1 %) aerosol,spray 1 spray INTRANASAL DAILY Patient Comments: PT TAKES AT NOON atomoxetine [Strattera] 80 mg capsule 80 mg PO DAILY Patient Comments: PT TAKES AT NOON Slynd 4 mg (28) tablet 4 mg PO DAILY Patient Comments: PT TAKES AT NOON Follow-up/Referrals: Dez,LISA Mondragon [Primary Care Provider] - 2 Weeks ( [facility] follow-up) Stand Alone Forms: Work/School Release IP Time of Disposition: 09:31
== END 2024-09-02 09:36 | disposition home or self-care (01) ==
PROVIDERS: Emergency Provider Nurse Practitioner; PCP Physician Assistant
DX: M19.072 Primary osteoarthritis, left ankle and foot (principal); S96.912A Strain of unspecified muscle and tendon at ankle and foot level, left foot, initial encounter; X50.9XXA Other and unspecified overexertion or strenuous movements or postures, initial encounter; K21.9 Gastro-esophageal reflux disease without esophagitis; F41.9 Anxiety disorder, unspecified; F17.210 Nicotine dependence, cigarettes, uncomplicated
CPT/HCPCS: 73630; 99213; G0463

== ENCOUNTER 2024-09-13 12:53 | Emergency (ER) | payer OTHER, SELFPAY ==
[2024-09-13 13:05] VITALS: BP 125/87; PULSE 100; RESP 16; TEMP 36.9; O2SAT 100
--- NOTE | 2024-09-13 13:25 | ED.URI ---
HPI - URI/Sore Throat General Chief Complaint: Upper Respiratory Infection Stated Complaint: Ears Irritation/Sinus Time Seen by Provider: 09/13/24 13:20 Source: patient, RN notes reviewed and old records reviewed Mode of arrival: ambulatory Limitations: no limitations History of Present Illness HPI Narrative: Patient presents with complaints of sinus pain and pressure for 2-3 weeks. She does report that she was using in allergy nasal spray, but no longer does so. She has been taking oaxi-nev-[id number] medication for her symptoms without relief. She reports that ears feel ?clogged?. States she is more tired than usual but is not running any fevers. She is not in any obvious distress Related Data Home Medications ?Medication ?Instructions ?Recorded ?Confirmed ?Last Taken ?Type omeprazole 20 mg capsule,delayed 20 mg PO DAILY 01/29/22 09/02/24 Unknown History release atomoxetine 80 mg capsule 80 mg PO DAILY 07/31/23 09/02/24 Unknown History (Strattera) azelastine 137 mcg (0.1 %) nasal 1 spray intranasal DAILY 07/31/23 09/02/24 Unknown History spray drospirenone (contraceptive) 4 mg 4 mg PO DAILY 07/31/23 09/02/24 Unknown History (28) tablet (Slynd) loratadine-pseudoephedrine ER 10 1 tablet PO DAILY 07/31/23 09/02/24 Unknown History mg-240 mg tablet,extended [id number] (Claritin-D 24 Hour) atomoxetine 100 mg capsule 100 mg PO DAILY 09/02/24 09/02/24 Unknown History (Strattera) atorvastatin 40 mg tablet 40 mg PO DAILY 09/02/24 09/02/24 Unknown History pantoprazole 40 mg tablet,delayed 40 mg PO DAILY 09/02/24 09/02/24 Unknown History release sertraline 100 mg tablet 100 mg PO Q24H 09/02/24 09/02/24 Unknown History Allergies Allergy/AdvReac Type Severity Reaction Status Date / Time venlafaxine (From Effexor) Allergy Rash Verified 09/02/24 09:11 medical tape AdvReac Unknown Rash Uncoded 09/02/24 09:11 Review of Systems Review of Systems: All systems reviewed & are unremarkable except as noted in HPI and below Constitutional: Constitutional: Reports no additional constitutional complaints, Reports headache(s) and Reports lethargy ENT: Reports system reviewed and no additional complaints, except as documented, Reports nasal congestion, Reports nasal discharge, Reports sinus pain and Reports sinus pressure Cardiovascular: Cardiovascular: Reports no additional cardiovascular complaints Respiratory: Respiratory: Reports no additional respiratory complaints and Reports cough Gastrointestinal: Gastrointestinal: Reports no additional gastrointestinal complaints [facility] Past Medical History Medical History History of gastroesophageal reflux (GERD) History of anxiety Surgical History Surgical History History of laparoscopic cholecystectomy 08/08/23 SAW Family History Family History Father Family history of cardiac disorder SVT (supraventricular tachycardia) Grandparent Family history of lung cancer Sibling Family history of type 2 diabetes mellitus Mother Endometrial cancer Social History Social History Smoking packs per day: 1 Smoking cigarettes per day: 20.0 Years smoked: 15 Smoking pack-years: 15.00 Smoking status: Current every day smoker Tobacco type: cigarettes Second hand tobacco smoke exposure: No Alcohol intake: current Alcohol use details: 4/YEAR Substance use: current Substance use type: marijuana Last use: JUN 2024 Living arrangements: with family Gender identity (if verbalized by the patient): Female Spiritual care concerns: No Comments At the time of my signature, I reviewed and agree with the nursing past medical, surgical, social, and family history. There is no relevant family history pertinent to the patient complaint. Exam Const: General: cooperative, no acute distress, alert and awake Orientation/consciousness: oriented to person, oriented to place and oriented to time HENMT: Head: normal to inspection Ears: TM abnormal dull bilateral Face and sinus: sinus tenderness Mouth: Yes moist mucous membranes Throat: posterior oropharynx abnormal erythema and postnasal drainage Resp: Effort & Inspection: normal respiratory effort and able to speak in complete sentences Auscultation: clear to auscultation bilaterally, no crackles, no rales, no rhonchi and no wheezes Cardio: Palpation: normal PMI Rate: regular rate Rhythm: regular rhythm Heart sounds: S1 normal heart sound present and S2 normal heart sound present Neuro: General: oriented to person, oriented to place and oriented to time Cranial nerves: Yes CN's II-XII intact bilaterally Psych: Appearance: grossly normal Thought process: Normal thought process present Insight: Good insight present (Psych) Judgement: Good judgement present (Psych) Course Course Level of Care: Express Care Visit Vital Signs Vital signs: Reviewed MDM - URI/Sore Throat MDM Narrative Medical decision making narrative: History and exam consistent with sinusitis. Patient nontoxic appearing, stable for discharge home on p.o. antibiotic therapy. Discharge instructions reviewed with patient, as well as provided in writing per nursing staff. The instructions also include specific and strict return/GO TO THE ER as well as f/u information. All questions have been answered, and the patient deny any further questions with discharge and discharge plan. Some parts of this dictation were generated by voice recognition software and may contain typographical and/or grammatical inaccuracies. Differential Diagnosis Differential diagnosis: Likely upper respiratory infection, otitis media, sinusitis and viral infection Medical Records Attestation: I reviewed the patient's medical records. Discharge Plan Discharge Clinical Impression: Sinusitis Qualifiers: Sinusitis location: frontal Chronicity: acute Recurrence: not specified as recurrent Qualified Code(s): J01.10 - Acute frontal sinusitis, unspecified Patient Disposition: Home, Self-Care Condition: Stable Instructions: Antibiotic Form, Sinusitis (ED) Additional Instructions: Take medications as prescribed. Follow with primary care provider. Emergency department for new or worse symptoms Patient Language: Persian Prescriptions: New amoxicillin-pot clavulanate 875-125 mg tablet 1 tablet PO Q12H Qty: 14 0RF prednisone 50 mg tablet 50 mg PO DAILY Qty: 5 0RF No Action omeprazole 20 mg capsule,delayed release(DR/EC) 20 mg PO DAILY Patient Comments: PT TAKES AT NOON atomoxetine [Strattera] 100 mg capsule 100 mg PO DAILY atorvastatin 40 mg tablet 40 mg PO DAILY pantoprazole 40 mg tablet,delayed release (DR/EC) 40 mg PO DAILY sertraline 100 mg tablet 100 mg PO Q24H Claritin-D 24 Hour 10-240 mg Tablet Extended Release 24 Hr 1 tablet PO DAILY Patient Comments: PT TAKES AT NOON azelastine 137 mcg (0.1 %) aerosol,spray 1 spray INTRANASAL DAILY Patient Comments: PT TAKES AT NOON atomoxetine [Strattera] 80 mg capsule 80 mg PO DAILY Patient Comments: PT TAKES AT NOON Slynd 4 mg (28) tablet 4 mg PO DAILY Patient Comments: PT TAKES AT NOON Follow-up/Referrals: Dez,LISA Mondragon [Primary Care Provider] - Time of Disposition: 13:50
== END 2024-09-13 14:08 | disposition home or self-care (01) ==
PROVIDERS: Emergency Provider Nurse Practitioner Family; PCP Physician Assistant
DX: J01.10 Acute frontal sinusitis, unspecified (principal); F17.210 Nicotine dependence, cigarettes, uncomplicated; F12.90 Cannabis use, unspecified, uncomplicated; K21.9 Gastro-esophageal reflux disease without esophagitis; F41.9 Anxiety disorder, unspecified
CPT/HCPCS: 99213; G0463

== ENCOUNTER 2025-03-04 18:09 | Emergency (ER) | payer OTHER, SELFPAY ==
--- NOTE | 2025-03-04 18:16 | ED.FEMALEGU ---
HPI - Female Genitourinary General Chief complaint: Urogenital-Female Stated complaint: Urogenital-Female Time Seen by Provider: 03/04/25 18:25 Source: patient and RN notes reviewed Mode of arrival: ambulatory Limitations: no limitations History of Present Illness HPI Narrative: 34-year-old female presents with concern for malodorous yellow vaginal discharge for 2 weeks. She reports history of BV and the symptoms are typical for her BV. She denies concern for STDs. MD elicited complaint: vaginal discharge Related Data Home Medications ?Medication ?Instructions ?Recorded ?Confirmed ?Last Taken ?Type atomoxetine 100 mg capsule 100 mg PO DAILY 09/02/24 09/02/24 Unknown History (Strattera) atorvastatin 40 mg tablet 40 mg PO DAILY 09/02/24 09/02/24 Unknown History sertraline 100 mg tablet 100 mg PO Q24H 09/02/24 09/02/24 Unknown History omeprazole 40 mg capsule,delayed mg 03/04/25 Unknown History release Allergies Allergy/AdvReac Type Severity Reaction Status Date / Time venlafaxine (From Effexor) Allergy Rash Verified 03/04/25 18:18 medical tape AdvReac Unknown Rash Uncoded 03/04/25 18:18 Review of Systems Review of Systems: CONSTITUTIONAL: Denies malaise, chills, sweats, or fever. CARDIOVASCULAR: Denies chest pain, palpitations, or edema. RESPIRATORY: Denies cough or dyspnea. GASTROINTESTINAL: Denies abdominal pain, nausea, vomiting, diarrhea GENITOURINARY: Reports dysuria, frequency, urgency, suprapubic pressure, and malodorous vaginal discharge. Denies flank pain or hematuria. SKIN: Denies rash or itching. MUSCULOSKELETAL: Denies back pain or myalgia. All systems reviewed & are unremarkable except as noted in HPI and below PMFSH Past Medical History Medical History History of gastroesophageal reflux (GERD) History of anxiety Surgical History Surgical History History of laparoscopic cholecystectomy 08/08/23 SAW Family History Family History Father Family history of cardiac disorder SVT (supraventricular tachycardia) Grandparent Family history of lung cancer Sibling Family history of type 2 diabetes mellitus Mother Endometrial cancer Social History Social History Smoking packs per day: 1 Smoking cigarettes per day: 20.0 Years smoked: 15 Smoking pack-years: 15.00 Smoking status: Current every day smoker Tobacco type: cigarettes Second hand tobacco smoke exposure: No Alcohol intake: current Alcohol use details: 4/YEAR Substance use: current Substance use type: marijuana Last use: JUN 2024 Living arrangements: with family Gender identity (if verbalized by the patient): Female Spiritual care concerns: No Comments At time of signature, agree with nursing past medical, surgical, social and family history. There is no relevant family history pertinent to the presenting complaint Exam Narrative: GENERAL: Well-appearing, well-nourished, and in no acute distress. HEAD: Normocephalic. EYES: PERRLA, conjunctivae clear. NECK: Supple. No lymphadenopathy CHEST: Clear to auscultation. No respiratory distress. HEART: Regular rate and rhythm. SKIN: Warm, dry, no rash. NEURO: Alert and oriented x3. PSYCH: Normal mood and affect Course Course Emergency Course: Patient is aware of diagnosis, understands and agrees to treatment plan. Anticipatory guidance given. Patient agrees to follow-up as directed and is aware of reasons to seek care at the emergency department. Portions of this record may have been created with voice recognition software Level of Care: Express Care Visit Vital Signs Vital signs: Reviewed. MDM - Female Genitourinary MDM Narrative Medical decision making narrative: Exam findings and UA show no acute concerns or changes; patient is non-toxic appearing and is in no distress. Patient is appropriate for outpatient treatment and follow-up. Differential Diagnosis Differential diagnosis: Likely urinary tract infection and cystitis Critical Care Time Critical Care Time Critical Care Time: No Discharge Plan Discharge Clinical Impression: Problematic vaginal discharge Patient Disposition: Home Condition: Stable Instructions: Antibiotic Form, Bacterial Vaginosis (ED) Additional Instructions: 1) Please follow-up with your primary care doctor in the next 1-2 days. 2) If you have any urgent concerns please go to the ER. 3) Please take medications as prescribed and continue taking your home medications as usual. 4) Please read and follow information included in discharge instructions. Patient Language: Kyrgyz Prescriptions: New metronidazole 500 mg tablet 500 mg PO BID 7 Days Qty: 14 0RF No Action atomoxetine [Strattera] 100 mg capsule 100 mg PO DAILY atorvastatin 40 mg tablet 40 mg PO DAILY sertraline 100 mg tablet 100 mg PO Q24H omeprazole 40 mg capsule,delayed release(DR/EC) Follow-up/Referrals: Dez,LISA Mondragon [Primary Care Provider, Unknown] Time of Disposition: 18:48
[2025-03-04 18:18] VITALS: BP 118/75; PULSE 85; RESP 18; TEMP 36.6; O2SAT 100
[2025-03-04 18:47] LABS: EDUAAPPEAR Clear; EDUABILI Negative (Negative); EDUABLOOD Trace (Negative); EDUACOLOR1 Yellow; EDUAGLUCOSE Negative (Negative); EDUAKETONE Negative (Negative); EDUALEUKO Negative (Negative); EDUANITRATE Negative (Negative); EDUAPH 5.5; EDUAPROTEIN Negative (Negative); EDUASPGRAVITY 1.010; EDUAUROBILI 0.2
== END 2025-03-04 18:55 | disposition home or self-care (01) ==
PROVIDERS: Emergency Provider Nurse Practitioner; PCP Physician Assistant
DX: N89.8 Other specified noninflammatory disorders of vagina (principal); F17.210 Nicotine dependence, cigarettes, uncomplicated
CPT/HCPCS: 81003; 99213; G0463

== ENCOUNTER 2025-06-26 15:15 | Emergency (ER) | payer OTHER, SELFPAY ==
[2025-06-26 15:18] VITALS: BP 139/90; PULSE 86; RESP 20; TEMP 36.9; O2SAT 100
--- NOTE | 2025-06-26 16:14 | ED.EAR ---
HPI - Ear Problem General Chief complaint: Ear Stated complaint: hearing loss in left ear/congestion Time Seen by Provider: 06/26/25 16:06 Source: patient and RN notes reviewed Mode of arrival: ambulatory Limitations: no limitations History of Present Illness HPI Narrative: 34-year-old female patient presents today complaining of a 6-7 week history of nasal congestion and sinus pressure. A few days ago her left ear became muffled in today when she blew her nose she experienced severe pain in the ear as well. Denies cough or recent fever. She has tried saline nasal rinses, decongestant, and ibuprofen without much relief. Related Data Home Medications ?Medication ?Instructions ?Recorded ?Confirmed ?Last Taken ?Type atomoxetine 100 mg capsule 100 mg PO DAILY 09/02/24 09/02/24 Unknown History (Strattera) atorvastatin 40 mg tablet 40 mg PO DAILY 09/02/24 09/02/24 Unknown History sertraline 100 mg tablet 100 mg PO Q24H 09/02/24 09/02/24 Unknown History omeprazole 40 mg capsule,delayed mg 03/04/25 Unknown History release Allergies Allergy/AdvReac Type Severity Reaction Status Date / Time venlafaxine (From Effexor) Allergy Rash Verified 06/26/25 15:17 medical tape AdvReac Unknown Rash Uncoded 03/04/25 18:18 PMFSH Past Medical History Medical History History of gastroesophageal reflux (GERD) History of anxiety Surgical History Surgical History History of laparoscopic cholecystectomy 08/08/23 SAW Family History Family History Father Family history of cardiac disorder SVT (supraventricular tachycardia) Grandparent Family history of lung cancer Sibling Family history of type 2 diabetes mellitus Mother Endometrial cancer Social History Social History Smoking packs per day: 1 Smoking cigarettes per day: 20.0 Years smoked: 15 Smoking pack-years: 15.00 Smoking status: Current every day smoker Tobacco type: cigarettes Second hand tobacco smoke exposure: No Alcohol intake: current Alcohol use details: 4/YEAR Substance use: current Substance use type: marijuana Last use: JUN 2024 Living arrangements: with family Gender identity (if verbalized by the patient): Female Spiritual care concerns: No Comments At time of signature, I have reviewed and agree with nursing past medical, surgical, social and family history unless otherwise noted. Please see nursing chart for further information. There is no relevant family history pertinent to the presenting complaint Exam Narrative: GENERAL: Mildly ill-appearing, well-nourished, and in no acute distress. HEAD: Normocephalic, atraumatic. EYES: EOMI. No redness or drainage. Conjunctivae normal. ENT: Mucous membranes pink and moist. Nares congested. No rhinorrhea. Right TM normal. Left TM erythematous and dull with bullous myringitis. Bilateral frontal and maxillary sinus tenderness. Throat normal. Uvula midline. NECK: Normal AROM. Supple. No lymphadenopathy. CHEST: No respiratory distress. Clear to auscultation. HEART: Regular rate and rhythm. No murmur appreciated. EXTREMITIES: Normal range of motion. No edema. SKIN: Warm, dry, no rash. Capillary refill normal. Normal skin turgor. NEURO: No focal deficits. Alert and oriented x3. Gait steady. PSYCH: Normal affect. No signs of depression or anxiety. Course Course Level of Care: Express Care Visit Vital Signs Vital signs: Vital Signs Temperature 98.4 F 06/26/25 15:18 Pulse Rate 86 06/26/25 15:18 Respiratory Rate 20 06/26/25 15:18 Blood Pressure 139/90 06/26/25 15:18 Pulse Oximetry 100 06/26/25 15:18 Oxygen Delivery Room Air 06/26/25 15:18 Temperature 98.4 F 06/26/25 15:18 Pulse Rate 86 06/26/25 15:18 Respiratory Rate 20 06/26/25 15:18 Blood Pressure 139/90 06/26/25 15:18 Pulse Oximetry 100 06/26/25 15:18 Oxygen Delivery Room Air 06/26/25 15:18 Reviewed MDM MDM Narrative Medical decision making narrative: 34-year-old female patient presents today complaining of a 6-7 week history of nasal congestion and sinus pressure. A few days ago her left ear became muffled in today when she blew her nose she experienced severe pain in the ear as well. Denies cough or recent fever. She has tried saline nasal rinses, decongestant, and ibuprofen without much relief. Upon exam patient is mildly ill appearing nasal congestion, frontal and maxillary sinus tenderness bilaterally, left TM is erythematous, dull with bullous myringitis. She will be treated for sinusitis and left otitis media with Augmentin. Recommend starting a nasal steroid such as Flonase as well. Patient agrees with plan. Vital signs stable. Anticipatory guidance given. Differential Diagnosis Differential Diagnosis: URI, sinusitis, otitis media, otitis externa, ruptured TM, serous otitis Critical Care Time Critical Care Time Critical Care Time: No Discharge Plan Discharge Clinical Impression: Bacterial sinusitis, Acute left otitis media, Bullous myringitis of left ear Patient Disposition: Home Condition: Stable Instructions: Antibiotic Form, Sinusitis (ED), Ear Infection (GEN) Additional Instructions: Please take the Augmentin for your sinus infection and ear infection. You may continue [id number] medication as needed, but consider starting a nasal steroid such as Flonase. Follow-up with your PCP in 3 days if symptoms are not improving. Patient Language: Ugandan Prescriptions: New amoxicillin-pot clavulanate 875-125 mg tablet 1 tablet PO Q12H 7 Days Qty: 14 0RF No Action atomoxetine [Strattera] 100 mg capsule 100 mg PO DAILY atorvastatin 40 mg tablet 40 mg PO DAILY sertraline 100 mg tablet 100 mg PO Q24H omeprazole 40 mg capsule,delayed release(DR/EC) Follow-up/Referrals: Dez,LISA Mondragon [Primary Care Provider, Unknown] Time of Disposition: 16:19
== END 2025-06-26 16:23 | disposition home or self-care (01) ==
PROVIDERS: Emergency Provider Nurse Practitioner; PCP Physician Assistant
DX: J32.9 Chronic sinusitis, unspecified (principal); H66.92 Otitis media, unspecified, left ear; F17.210 Nicotine dependence, cigarettes, uncomplicated; K21.9 Gastro-esophageal reflux disease without esophagitis; F41.9 Anxiety disorder, unspecified
CPT/HCPCS: 99213; G0463